=== PATIENT | male | born 1950 | race Caucasian/White ===

== ENCOUNTER → 2020-11-01 09:42 | Outpatient (BNVA) | payer OTHER, SELFPAY | PROVIDERS: PCP Family Medicine; Referring Provider Family Medicine; Visit Provider Urology | DX: R97.20 Elevated prostate specific antigen [PSA] (principal); N40.1 Benign prostatic hyperplasia with lower urinary tract symptoms | CPT/HCPCS: 81003 ==

== ENCOUNTER 2020-12-06 11:23 | Inpatient (IN) | payer OTHER, MEDICARE, SELFPAY ==
[2020-12-06] VITALS (7 sets, daily range): BP systolic 100–125; BP diastolic 62–78; PULSE 66–80; RESP 16–19; TEMP 37.1–37.4; O2SAT 89–95; BMI 27.2
--- NOTE | 2020-12-06 11:45 | XR_ITS ---
WS: [id number] XR chest 1V portable [id number] REASON FOR EXAM: dyspnea FINDINGS: Moderate tortuosity and ectasia of the thoracic aorta without aneurysmal dilatation. Heart at the upp er limits of normal in size. Interstitial infiltrative changes in the right lower lung field and in the left lower and midlung fie lds. Mild changes of degenerative spondylosis in the mid and lower thoracic spine. XR/XR chest 1V portable [id number] IMPRESSION: Interstitial lung opacities likely representing early pneumonitis.
[2020-12-06 12:32] LABS: Basophils % 0.2 %; Hematocrit 43.7 % (42.0-52.0); Hemoglobin 14.4 g/dL (11.7-16.6); Lymphocytes # 0.6 10^3/uL (0.8-4.8); Lymphocytes % 10.6 %; Mean Corpuscular Hemoglobin 28.7 pg (28.0-34.0); Mean Corpuscular Volume 87.1 fl (80-94); Mean Platelet Volume 10.6 fL (7.4-10.4); Monocytes # 0.4 10^3/uL (0.2-0.9); Monocytes % 6.6 %; Neutrophils # 4.89 10^3/uL (1.8-7.7); Neutrophils % 82.1 %; Nucleated Red Blood Cells % 0 %; Platelet Count 205 10^3/cmm (130-400); Red Blood Count 5.02 10^6/uL (4.1-5.3); Red Cell Distribution Width 13.2 % (12.1-15.1)
[2020-12-06 12:52] LABS: D Dimer 1.41 ug/mIFEU (0-0.59)
[2020-12-06 12:56] LABS: Lactic Sepsis W/Reflex 1.5 mmol/L (0.5-2.2)
[2020-12-06 12:59] LABS: Alanine Aminotransferase 32 U/L (0-41); Albumin Level 3.8 g/dL (3.5-5.2); Alkaline Phosphatase 62 IU/L (40-130); Anion Gap 16.6 (5-19); Aspartate Amino Transferase 46 U/L (0-40); Blood Urea Nitrogen 22 mg/dL (8-23); C Reactive Protein 80.6 mg/L (0.0-4.9); Calcium 8.3 mg/dL (8.5-10.5); Carbon Dioxide 29 mmol/L (22-29); Chloride 94 mmol/L (98-107); Globulin 2.6 g/dL (1.3-4.6); Glomerular Filtration Rate 83.9 mL/min (90-130); Glucose 96 mg/dL (65-115); Osmolality Calculated 285 mOsm/kg (285-295); Potassium 3.6 mmol/L (3.5-5.1); Sodium 136 mmol/L (136-145); Total Bilirubin 0.5 mg/dL (0.15-1.2); Total Protein 6.4 g/dL (6.6-8.7)
[2020-12-06 13:06] LABS: Procalcitonin 0.26 ng/mL (0-0.5)
--- NOTE | 2020-12-06 13:20 | CT_ITS ---
WS: [id number] CT CHEST ANGIOGRAPHY WITH REFORMATS HISTORY: COVID /hypoxia TECHNIQUE: Contiguous axial images are obtained through the chest during arterial injection of intrav enous contrast. Images are reconstructed to evaluate the pulmonary arteries. MIP imaging also reviewe d. All CT scans at [facility] use at least one of these dose optimization techniques: automat ed exposure control; mA and/or kV adjustment per patient size (includes targeted exams where dose is matched to clinical indication); or iterative reconstruction. CONTRAST: Omnipaque 350; 95 mL IV. DLP: 527.26 mGy.cm COMPARISON: None available. Limited opacification beyond the segmental branches. Centrally no pulmonary embolism. No filling defe cts in the LEFT atrial appendage. Normal size pulmonary artery. Mildly prominent ascending aorta. Max imum diameter 4.6 cm. Heart is moderately enlarged. No pericardial or pleural effusions. Moderate bilateral groundglass opacifications and more focal areas of consolidations at the lung base s. No pneumothorax. Small hiatal hernia. The bladder is contracted with stones. No pericholecystic fluid. Partially visualized small exophytic cysts or nodules within the upper pole the LEFT kidney. Increase in thoracic kyphosis. CT/CT angio chest PE protcl [id number] IMPRESSION: 1. No central pulmonary embolism. Poor opacification beyond the segmental bran ches. 2. Bilateral, multilobar pneumonia typical for Covid 19. 3. Moderate cardiomegaly. 4. Mild dilatation ascending aorta at 4.6 cm.
--- NOTE | 2020-12-06 13:24 | ED_ITS ---
HPI - COVID General: Chief Complaint: COVID symptoms Stated Complaint: SOB, Cough, Fatique, Fever Time Seen by Provider: 12/06/20 11:40 Triage information: Has fever, cough or shortness of breath . Exposure to COVID + person last 14 days History of Present Illness: HPI Narrative: 70-year-old male who presents to the emergency room with complaint of shortness of breath fatigue and fever. Is worsened over the last several days. He is initially had some loose stools. He was exposed to Covid by his girlfriend who lives with him and was recently hospitalized and has now been discharged. He denies any chest pain. MD complaint: has COVID symptoms Prior covid testing: no COVID 19 common symptoms: positive fever(s), chills, cough, non-productive cough, dyspnea, fatigue, body aches, headache(s), loss of sense of smell and/or taste, throat pain, nasal congestion, nausea and diarrhea; negative vomiting or chest tightness COVID 19 other sytmptoms: negative chest pain Onset (ago): day(s) (5) Severity: mild Pertinent comorbid conditions: diabetes Treatment prior to arrival: none COVID Results: SARS-CoV-2 Antigen (Rapid) Positive (Negative) H 12/06/20 13:14 12/06/20 Nasal/Oral Coronavirus 2019 PCR Pending 12/06/20 13:14 12/06/20 Review of Systems Const: Reports: fever(s), chills, body aches and fatigue ENMT: Reports: throat pain and nasal congestion Card: Denies: chest pain, edema, dyspnea on exertion or orthopnea Resp: Reports: dyspnea and non-productive cough GI: Reports: nausea and diarrhea; Denies: vomiting : Denies: flank pain, dysuria, urinary frequency or urinary urgency Skin/Breast: Denies: rash or pruritus Neuro: Reports: headache(s) PFSH ED PFSH: Medical History Diabetes Elevated PSA Erectile dysfunction Gout Hyperlipidemia Hypertension IBS (irritable bowel syndrome) Insomnia Surgical History H/O colonoscopy with polypectomy H/O excision of mass fatty tumor on back S/P appendectomy Family History Mother , at age 75 Diabetes Father , at age 76 Cancer brain Social History Smoking and tobacco status: former smoker Alcohol intake: never Marital status: / Current occupational status: employed History of recent travel: No Physical Exam Const: COMMON NORMALS: no acute distress GENERAL APPEARANCE: cooperative and comfortable ORIENTATION/CONSCIOUSNESS: Yes awake, Yes oriented to person, Yes oriented to place and Yes oriented to time HENMT: COMMON NORMALS: normocephalic, atraumatic and hearing grossly normal bilaterally HEAD & SCALP: normocephalic and atraumatic Neck/C-Spine: COMMON NORMALS: no JVD Resp: COMMON NORMALS: normal respiratory effort, No retractions, No use of accessory muscles and clear to auscultation bilaterally AUSCULTATION: clear to auscultation bilaterally Cardio: COMMON NORMALS: no JVD, regular rate, regular rhythm and No murmurs present (Cardio) RATE: regular rate RHYTHM: regular rhythm GI: COMMON NORMALS: Soft to palpation and No hepatosplenomegaly present AUSCULTATION: Yes normoactive bowel sounds PALPATION: Yes Soft to palpation, No Tenderness to palpation present (GI), No Guarding due to palpation present (GI) and Yes No hepatosplenomegaly present Extremity: COMMON NORMALS: normal to inspection, capillary refill normal, no clubbing, cyanosis or edema, no calf tenderness and no pedal edema Neuro: SENSORIUM/ORIENTATION: Yes oriented to person, Yes oriented to place and Yes oriented to time Skin: COMMON NORMALS: no rashes or lesions noted GENERAL SKIN EXAM: no rashes or lesions noted Course Vital Signs: Vital signs: Vital Signs Temperature 98.7 F 12/06/20 11:35 Pulse Rate 77 12/06/20 13:43 Respiratory Rate 18 12/06/20 11:35 Blood Pressure 109/74 12/06/20 11:35 Pulse Oximetry 95 12/06/20 13:43 MDM - COVID MDM Narrative: Medical decision making narrative: Labs and imaging reviewed as on the chart. Patient is Covid positive from looking for CTA of his chest I suspect he will worsen he also has a markedly elevated CRP he is requiring 4 L with any activity 2 L when he stays at rest he is hypertensive that can combined with his age I am concerned about progression of his disease. We will go ahead and admit Lab Data: Labs: Lab Results 12/06/20 12/06/20 12/06/20 Range/Units 09:15 09:15 09:15 WBC 6.0 (4.0-10.0) 10^3/ uL RBC 5.02 (4.1-5.3) 10^6/u L Hgb 14.4 (11.7-16.6) g/dL Hct 43.7 (42.0-52.0) % MCV 87.1 (80-94) fl MCH 28.7 (28.0-34.0) pg MCHC 33.0 (30.0-36.0) g/dL RDW 13.2 (12.1-15.1) % Plt Count 205 (130-400) 10^3/c mm MPV 10.6 H (7.4-10.4) fL Neut % (Auto) 82.1 % Lymph % (Auto) 10.6 % Gregory % (Auto) 6.6 % Eos % (Auto) 0.0 % Baso % (Auto) 0.2 % Neut # (Auto) 4.89 (1.8-7.7) 10^3/u L Lymph # (Auto) 0.6 L (0.8-4.8) 10^3/u L Gregory # (Auto) 0.4 (0.2-0.9) 10^3/u L Eos # (Auto) 0.0 (0.0-0.8) 10^3/u L Baso # (Auto) 0.0 (0.0-0.1) 10^3/u L Nucleated RBC % (a uto) 0 % Nucleated RBCs # 0.0 /100WBC D-Dimer 1.41 H (0-0.59) ug/mIFE U Sodium 136 (136-145) mmol/L Potassium 3.6 (3.5-5.1) mmol/L Chloride 94 L (98-107) mmol/L Carbon Dioxide 29 (22-29) mmol/L Anion Gap 16.6 (5-19) BUN 22 (8-23) mg/dL Creatinine 0.9 (0.7-1.2) mg/dL GFR Calculation 83.9 L (90-130) mL/min Glucose 96 (65-115) mg/dL Calculated Osmolal ity 285 (285-295) mOsm/k g Lactic Acid (0.5-2.2) mmol/L Calcium 8.3 L (8.5-10.5) mg/dL Total Bilirubin 0.5 (0.15-1.2) mg/dL AST 46 H (0-40) U/L ALT 32 (0-41) U/L Alkaline Phosphata se 62 (40-130) IU/L C-Reactive Protein 80.6 H (0.0-4.9) mg/L Total Protein 6.4 L (6.6-8.7) g/dL Albumin 3.8 (3.5-5.2) g/dL Globulin 2.6 (1.3-4.6) g/dL Procalcitonin 0.26 (0-0.5) ng/mL SARS-CoV-2 Ag (Rap id) (Negative) 12/06/20 12/06/20 Range/Units 09:15 13:14 WBC (4.0-10.0) 10^3/ uL RBC (4.1-5.3) 10^6/u L Hgb (11.7-16.6) g/dL Hct (42.0-52.0) % MCV (80-94) fl MCH (28.0-34.0) pg MCHC (30.0-36.0) g/dL RDW (12.1-15.1) % Plt Count (130-400) 10^3/c mm MPV (7.4-10.4) fL Neut % (Auto) % Lymph % (Auto) % Gregory % (Auto) % Eos % (Auto) % Baso % (Auto) % Neut # (Auto) (1.8-7.7) 10^3/u L Lymph # (Auto) (0.8-4.8) 10^3/u L Gregory # (Auto) (0.2-0.9) 10^3/u L Eos # (Auto) (0.0-0.8) 10^3/u L Baso # (Auto) (0.0-0.1) 10^3/u L Nucleated RBC % (a uto) % Nucleated RBCs # /100WBC D-Dimer (0-0.59) ug/mIFE U Sodium (136-145) mmol/L Potassium (3.5-5.1) mmol/L Chloride (98-107) mmol/L Carbon Dioxide (22-29) mmol/L Anion Gap (5-19) BUN (8-23) mg/dL Creatinine (0.7-1.2) mg/dL GFR Calculation (90-130) mL/min Glucose (65-115) mg/dL Calculated Osmolal ity (285-295) mOsm/k g Lactic Acid 1.5 (0.5-2.2) mmol/L Calcium (8.5-10.5) mg/dL Total Bilirubin (0.15-1.2) mg/dL AST (0-40) U/L ALT (0-41) U/L Alkaline Phosphata se (40-130) IU/L C-Reactive Protein (0.0-4.9) mg/L Total Protein (6.6-8.7) g/dL Albumin (3.5-5.2) g/dL Globulin (1.3-4.6) g/dL Procalcitonin (0-0.5) ng/mL SARS-CoV-2 Ag (Rap id) Positive H (Negative) COVID Results: SARS-CoV-2 Antigen (Rapid) Positive (Negative) H 12/06/20 13:14 12/06/20 Nasal/Oral Coronavirus 2019 PCR Pending 12/06/20 13:14 12/06/20 Discharge Plan Discharge Patient Disposition: Admitted As Inpatient Admit Provider: Donavan Ambrose Clinical Impression: Pneumonia due to 2019 novel coronavirus Condition: Stable Coding Level of Care Code ED Clinical Safety Manager for [facility] Fwd Exam Comprehensive
[2020-12-06 13:42] LABS: SARS Covid-2 Antigen Positive (Negative)
[2020-12-06] MEDS: iohexol 350 mg/mL 100 mL Btl IV (14:10)
[2020-12-06] MEDS: dexamethasone 10 mg/mL INJ 6 MG IVP (16:02)
[2020-12-06] MEDS: remdesivir 200 MG in sodium chloride 0.9% (100 ml) 100 ML 100 MG IV (16:03)
--- NOTE | 2020-12-06 17:19 | PM.HP ---
Providers/Chief Complaint Admitting Physician: Donavan Ambrose MD Primary Care Provider: Corrie Pardo MD Chief Complaint: SOB, Cough, Fatique, Fever History of Present Illness 70-year-old gentleman presents with dyspnea, fevers, chills, muscle aches, mild diarrhea since Friday, his significant other had recently been hospitalized with COVID-19, he is not vaccinated. In ER found to be positive for COVID-[address] angiogram chest negative for PE. Bilateral multilobar pneumonia typical for COVID-19 is noted. Moderate cardiomegaly. Mild dilation of ascending aorta at 4.6 cm. He is newly requiring oxygen supplementation, on presentation needing 4 L of oxygen. Currently doing a little better needing 2 L supplementation. Review of Systems Const: Reports: fever(s), chills, body aches and malaise Eyes: Denies: change in vision or eye redness ENMT: Denies: throat pain, oral sores or ear or mastoid pain Card: Denies: chest pain, edema, pre-syncope or dyspnea on exertion Resp: Reports: dyspnea and productive cough; Denies: hemoptysis GI: Reports: diarrhea; Denies: abdominal pain, nausea, vomiting, constipation, hematochezia or melena : Denies: flank pain, difficulty urinating, urinary frequency or hematuria Musc: Denies: back pain, joint swelling or joint redness Skin/Breast: Denies: rash, sores or new lesions Neuro: Denies: headache(s), numbness in extremities, weakness in extremities, dizziness, confusion or seizure-like activity Endo: Denies: polyuria or polydipsia Hang/Lymph: Denies: easy bleeding or purpura All/Imm: Denies: urticaria, throat swelling or tongue swelling Medications/Allergies Home Medications Medication Instructions Recorded Confirmed Last Taken Type atenolol 100 mg tablet 50 mg PO DAILY tab 10/17/20 12/06/20 12/06/20 History cetirizine 10 mg tablet 10 mg PO DAILY PRN 10/17/20 12/06/20 12/06/20 History colestipol 1 gram tablet 4 g PO BID tab 10/17/20 12/06/20 12/06/20 History hydrochlorothiazide 50 mg tablet 50 mg PO DAILY 10/17/20 12/06/20 12/06/20 History metformin 500 mg tablet 250 mg PO BID tab 10/17/20 12/06/20 12/06/20 History pravastatin 80 mg tablet 80 mg PO DAILY 10/17/20 12/06/20 12/06/20 History sildenafil 100 mg tablet 100 mg PO DAILY PRN 10/17/20 12/06/20 Unknown History cholecalciferol (vitamin D3) 50 50 mcg PO DAILY 11/01/20 12/06/20 12/06/20 History mcg (2,000 unit) capsule garlic 2,000 mg PO DAILY 11/01/20 12/06/20 12/06/20 History lisinopril 40 mg tablet 20 mg PO DAILY tab 11/01/20 12/06/20 12/06/20 History magnesium 250 mg tablet 500 mg PO DAILY 11/01/20 12/06/20 12/06/20 History multivitamin 1 tab PO DAILY 11/01/20 12/06/20 12/06/20 History omega 9-agk-bxe-fish oil 1,200 mg 1,200 cap PO BID cap 11/01/20 12/06/20 12/06/20 History (144 mg-216 mg) capsule allopurinol 100 mg PO TID 12/06/20 12/06/20 12/06/20 History ascorbic acid (vitamin C) [Vitamin 250 mg PO DAILY 12/06/20 12/06/20 12/06/20 History C] guaifenesin [Mucinex] 1,200 mg PO BID 12/06/20 12/06/20 12/06/20 History melatonin 5 mg PO DAILY PRN 12/06/20 12/06/20 Unknown History potassium citrate 10 meq PO DAILY 12/06/20 12/06/20 12/06/20 History Allergies Allergy/AdvReac Type Severity Reaction Status Date / Time niacin Allergy Unknown Verified 11/01/20 09:46 simvastatin Allergy Unknown Verified 11/01/20 09:46 Sulfa (Sulfonamide Allergy Unknown Verified 11/01/20 09:46 Antibiotics) PFSH Acute PFSH: Medical History Diabetes Elevated PSA Erectile dysfunction Gout Hyperlipidemia Hypertension IBS (irritable bowel syndrome) Insomnia Surgical History H/O colonoscopy with polypectomy H/O excision of mass fatty tumor on back S/P appendectomy Family History Mother , at age 75 Diabetes Father , at age 76 Cancer brain Social History Smoking and tobacco status: former smoker Alcohol intake: never Marital status: / Current occupational status: employed History of recent travel: No Vitals/I&O/Wt Last Vital Signs Temp 98.7 F 12/06/20 11:35 Pulse 77 12/06/20 13:43 Resp 18 12/06/20 11:35 BP 109/74 12/06/20 11:35 Pulse Ox 95 12/06/20 13:43 12/06/20 12/06/20 12/06/20 06:59 14:59 22:59 Intake Total 100 / 100 Balance 100 / 100 Weight last 48 hrs Weight 86.183 kg Physical Exam Const: COMMON NORMALS: no acute distress, patient oriented x3 and alert GENERAL APPEARANCE: cooperative and ill appearing ORIENTATION/CONSCIOUSNESS: Yes awake HENMT: COMMON NORMALS: oropharynx normal Neck/C-Spine: COMMON NORMALS: no JVD Resp: COMMON NORMALS: normal respiratory effort and clear to auscultation bilaterally AUSCULTATION: clear to auscultation bilaterally Cardio: COMMON NORMALS: no JVD, regular rhythm, S1 normal heart sound present, S2 normal heart sound present and No murmurs present (Cardio) RHYTHM: regular rhythm HEART SOUNDS: S1 normal heart sound present and S2 normal heart sound present GI: COMMON NORMALS: Normal to inspection, nondistended, normoactive bowel sounds present, Soft to palpation and non-tender PALPATION: Yes Soft to palpation Extremity: COMMON NORMALS: no joint enlargement and no pedal edema Neuro: COMMON NORMALS: patient oriented x3 and moves all extremities Skin: COMMON NORMALS: no rashes or lesions noted GENERAL SKIN EXAM: no rashes or lesions noted Data : 12/06/20 09:15 12/06/20 09:15 A&P Assessment and plan (1) Pneumonia due to 2019 novel coronavirus: Severe COVID-19 pneumonia with new oxygen requirement, requiring 4 L to maintain saturation in the 90s at presentation. Currently doing a bit better on 2 L. Not vaccinated. Started on treatment with remdesivir, Decadron. Lovenox prophylaxis. Continue oxygen support. CTA negative for PE. Currently does not have evidence of superimposed secondary bacterial infection. Status: Acute Additional A&P Information Diabetes: SSI HTN HLD Reports apart from the above illness, otherwise has been feeling healthy Attestations Medical Necessity Statement*: Admission of over 2 midnights is anticipated in this gentleman with severe COVID-19 and underlying comorbidities. Coding Level of Care Code Acute Dental Amalgam Processor for [facility] Fwd Diagnoses Pneumonia due to 2019 novel coronavirus U07.1; J12.82
[2020-12-06 17:50] LABS: Glucose Point of Care 116 mg/dL (70-110)
[2020-12-06] MEDS: enoxaparin 40 mg/0.4 mL Syringe SUBCUT (18:20)
[2020-12-06] MEDS: guaiFENesin 600 mg Tablet 1200 MG PO (18:20)
[2020-12-06 20:54] LABS: Glucose Point of Care 146 mg/dL (70-110)
[2020-12-07] VITALS (7 sets, daily range): BP systolic 101–131; BP diastolic 63–82; PULSE 67–98; RESP 17–19; TEMP 36.7–37; O2SAT 87–94
[2020-12-07 05:46] LABS: Hematocrit 42.5 % (42.0-52.0); Hemoglobin 14.1 g/dL (11.7-16.6); Lymphocytes # 0.7 10^3/uL (0.8-4.8); Lymphocytes % 14.1 %; Mean Corpuscular HGB Conc 33.2 g/dL (30.0-36.0); Mean Corpuscular Hemoglobin 28.9 pg (28.0-34.0); Mean Corpuscular Volume 87.1 fl (80-94); Mean Platelet Volume 10.6 fL (7.4-10.4); Monocytes # 0.4 10^3/uL (0.2-0.9); Monocytes % 7.2 %; Neutrophils # 4.04 10^3/uL (1.8-7.7); Neutrophils % 78.1 %; Nucleated Red Blood Cells % 0 %; Platelet Count 217 10^3/cmm (130-400); Red Blood Count 4.88 10^6/uL (4.1-5.3); White Blood Count 5.2 10^3/uL (4.0-10.0)
[2020-12-07 06:05] LABS: Alanine Aminotransferase 31 U/L (0-41); Albumin Level 3.3 g/dL (3.5-5.2); Alkaline Phosphatase 60 IU/L (40-130); Anion Gap 16.4 (5-19); Aspartate Amino Transferase 38 U/L (0-40); Blood Urea Nitrogen 20 mg/dL (8-23); C Reactive Protein 87.9 mg/L (0.0-4.9); Calcium 8.2 mg/dL (8.5-10.5); Carbon Dioxide 28 mmol/L (22-29); Chloride 96 mmol/L (98-107); Globulin 3.2 g/dL (1.3-4.6); Glucose 126 mg/dL (65-115); Osmolality Calculated 288 mOsm/kg (285-295); Potassium 3.4 mmol/L (3.5-5.1); Sodium 137 mmol/L (136-145); Total Bilirubin 0.4 mg/dL (0.15-1.2); Total Protein 6.5 g/dL (6.6-8.7)
--- NOTE | 2020-12-07 06:10 | PC.NURSE ---
Patient AAOx4, VSS, resting in bed, patient requesting home medication be put on MAR.
[2020-12-07 06:52] LABS: Glucose Point of Care 137 mg/dL (70-110)
[2020-12-07] MEDS: guaiFENesin 600 mg Tablet 1200 MG PO ×2 (08:55→17:36)
--- NOTE | 2020-12-07 11:59 | PM.PN ---
Subjective Subjective: Interval history: Overall he is doing about the same. He is still requiring oxygen,. She had desaturated after placing his nasal cannula upside down with saturation decreasing to 88%. He had gotten up to the commode and back to the bed. Denies any presyncopal symptoms. No chest pain. He is having mild diarrhea. Denies nausea or vomiting. Vitals/I&O/Wt Last Vital Signs Temp 98.2 F 12/07/20 08:00 Pulse 98 12/07/20 11:09 Resp 17 12/07/20 08:00 BP 112/71 12/07/20 08:00 Pulse Ox 93 12/07/20 11:09 12/06/20 12/07/20 12/07/20 22:59 06:59 14:59 Intake Total 340 / 340 200 / 540 360 / 360 Output Total 250 / 250 700 / 700 Balance 340 / 340 -50 / 290 -340 / -340 Weight last 48 hrs Weight 87.997 kg Weight 86.183 kg Weight 86.183 kg Physical Exam Const: COMMON NORMALS: no acute distress, patient oriented x3 and alert GENERAL APPEARANCE: cooperative ORIENTATION/CONSCIOUSNESS: Yes awake HENMT: COMMON NORMALS: oropharynx normal Neck/C-Spine: COMMON NORMALS: no JVD Resp: COMMON NORMALS: normal respiratory effort and clear to auscultation bilaterally AUSCULTATION: clear to auscultation bilaterally Cardio: COMMON NORMALS: no JVD, regular rhythm, S1 normal heart sound present, S2 normal heart sound present and No murmurs present (Cardio) RHYTHM: regular rhythm HEART SOUNDS: S1 normal heart sound present and S2 normal heart sound present GI: COMMON NORMALS: Normal to inspection, nondistended, normoactive bowel sounds present, Soft to palpation and non-tender PALPATION: Yes Soft to palpation Extremity: COMMON NORMALS: no joint enlargement and no pedal edema Neuro: COMMON NORMALS: patient oriented x3 and moves all extremities SENSORIUM/ORIENTATION: Yes alert Skin: COMMON NORMALS: no rashes or lesions noted GENERAL SKIN EXAM: no rashes or lesions noted Data : 12/07/20 04:56 12/07/20 04:56 A&P Assessment and plan (1) Pneumonia due to 2019 novel coronavirus: Continue remdesivir, Decadron. Continue oxygen support. Desaturated today to 88% when accidentally placed his nasal cannula upside down. Continue to treat and monitor in the hospital for severe COVID-19 pneumonia. Feels some dryness of airway passages. Humidifier added to oxygen. Continue Lovenox prophylaxis. Continue oxygen support. CTA negative for PE. Currently does not have evidence of superimposed secondary bacterial infection. Status: Acute Additional A&P Information Diabetes: SSI HTN HLD Reports apart from the above illness, otherwise has been feeling healthy Attestations Medical Necessity Statement*: Continue admission for assessment management of severe COVID-19, new hypoxia. Coding Level of Care Code Acute Skilled Nursing Professional for [facility] Fwd Diagnoses Pneumonia due to 2019 novel coronavirus U07.1; J12.82
[2020-12-07 12:11] LABS: Glucose Point of Care 131 mg/dL (70-110)
[2020-12-07 13:34] LABS: Coronavirus Test Green County Detected
[2020-12-07] MEDS: enoxaparin 40 mg/0.4 mL Syringe SUBCUT (17:36)
[2020-12-07] MEDS: remdesivir 100 MG in sodium chloride 0.9% (100 ml) 100 ML IV (17:36)
[2020-12-07 17:50] LABS: Glucose Point of Care 125 mg/dL (70-110)
[2020-12-07] MEDS: guaiFENesin-dextromethorphan UDC 10 mL PO (21:19)
[2020-12-07 21:28] LABS: Glucose Point of Care 134 mg/dL (70-110)
[2020-12-08] VITALS: BP 110/69; PULSE 73; RESP 16; TEMP 37.2; O2SAT 90
[2020-12-08 04:00] VITALS: BP 121/74; PULSE 72; RESP 18; TEMP 37.3; O2SAT 96
[2020-12-08 05:19] LABS: Basophils % 0.1 %; Hematocrit 42.7 % (42.0-52.0); Lymphocytes % 12.8 %; Mean Corpuscular HGB Conc 32.8 g/dL (30.0-36.0); Mean Corpuscular Hemoglobin 28.3 pg (28.0-34.0); Mean Corpuscular Volume 86.4 fl (80-94); Mean Platelet Volume 10.7 fL (7.4-10.4); Monocytes # 0.6 10^3/uL (0.2-0.9); Monocytes % 7.8 %; Neutrophils # 6.31 10^3/uL (1.8-7.7); Neutrophils % 78.9 %; Nucleated Red Blood Cells % 0 %; Platelet Count 266 10^3/cmm (130-400); Red Blood Count 4.94 10^6/uL (4.1-5.3); Red Cell Distribution Width 12.8 % (12.1-15.1)
[2020-12-08 05:45] LABS: Alanine Aminotransferase 32 U/L (0-41); Alkaline Phosphatase 52 IU/L (40-130); Anion Gap 15.5 (5-19); Aspartate Amino Transferase 47 U/L (0-40); Blood Urea Nitrogen 21 mg/dL (8-23); Calcium 8.4 mg/dL (8.5-10.5); Carbon Dioxide 29 mmol/L (22-29); Chloride 97 mmol/L (98-107); Globulin 3.3 g/dL (1.3-4.6); Glomerular Filtration Rate 165.4 mL/min (90-130); Glucose 106 mg/dL (65-115); Osmolality Calculated 289 mOsm/kg (285-295); Potassium 3.5 mmol/L (3.5-5.1); Sodium 138 mmol/L (136-145); Total Bilirubin 0.3 mg/dL (0.15-1.2); Total Protein 6.3 g/dL (6.6-8.7)
--- NOTE | 2020-12-08 06:33 | PC.NURSE ---
Patient AAOx4, VSS, slight increase in oxygen demands as patient ambulates. No needs at this time. OOBT bathroom, room clutter free and call light in reach. Report and hand off to oncoming nurse at shift change.
[2020-12-08 06:58] LABS: Glucose Point of Care 102 mg/dL (70-110)
[2020-12-08 08:00] VITALS: BP 108/67; PULSE 78; RESP 18; TEMP 36.9; O2SAT 93
[2020-12-08 08:53] LABS: C Reactive Protein 47.2 mg/L (0.0-4.9)
[2020-12-08] MEDS: guaiFENesin 600 mg Tablet 1200 MG PO ×2 (09:04→17:40)
[2020-12-08 09:31] LABS: D Dimer 1.01 ug/mIFEU (0-0.59)
[2020-12-08 11:02] VITALS: BP 124/80; PULSE 91; RESP 18; TEMP 36.9; O2SAT 93
[2020-12-08 11:02] LABS: Glucose Point of Care 149 mg/dL (70-110)
[2020-12-08] MEDS: guaiFENesin-dextromethorphan UDC 10 mL PO (11:38)
--- NOTE | 2020-12-08 14:14 | P.PN_ITS ---
Subjective Subjective: Interval history: He is still feeling unwell, overall perhaps a touch better. Still intermittent cough, especially with deeper breath. Vitals/I&O/Wt Last Vital Signs Temp 98.5 F 12/08/20 11:02 Pulse 91 12/08/20 11:02 Resp 18 12/08/20 11:02 BP 124/80 12/08/20 11:02 Pulse Ox 93 12/08/20 11:02 12/07/20 12/08/20 12/08/20 22:59 06:59 14:59 Intake Total 340 / 1060 200 / 1260 120 / 120 Output Total 450 / 1150 225 / 225 Balance -110 / -90 200 / 110 -105 / -105 Weight last 48 hrs Weight 87.952 kg Weight 87.997 kg Weight 86.183 kg Physical Exam Const: COMMON NORMALS: no acute distress, patient oriented x3 and alert GENERAL APPEARANCE: cooperative and ill appearing ORIENTATION/CONSCIOUSNESS: Yes awake HENMT: COMMON NORMALS: oropharynx normal Neck/C-Spine: COMMON NORMALS: no JVD Resp: COMMON NORMALS: normal respiratory effort and clear to auscultation bilaterally AUSCULTATION: clear to auscultation bilaterally Cardio: COMMON NORMALS: no JVD, regular rhythm, S1 normal heart sound present, S2 normal heart sound present and No murmurs present (Cardio) RHYTHM: regular rhythm HEART SOUNDS: S1 normal heart sound present and S2 normal heart sound present GI: COMMON NORMALS: Normal to inspection, nondistended, normoactive bowel sounds present, Soft to palpation and non-tender PALPATION: Yes Soft to palpation Extremity: COMMON NORMALS: no joint enlargement and no pedal edema Neuro: COMMON NORMALS: patient oriented x3 and moves all extremities SENSORIUM/ORIENTATION: Yes alert Skin: COMMON NORMALS: no rashes or lesions noted GENERAL SKIN EXAM: no rashes or lesions noted Data : 12/08/20 04:04 12/08/20 04:04 A&P Assessment and plan (1) Pneumonia due to 2019 novel coronavirus: Some worsening of hypoxia, requiring 4 L of oxygen. Given so far lack of improvement hypoxia, and some gradual worsening, continue remdesivir, Decadron. Continue oxygen support. Continue to treat and monitor in the hospital for severe COVID-19 pneumonia. Continue Lovenox prophylaxis. Continue oxygen support. CTA negative for PE. Currently does not have evidence of superimposed secondary bacterial infection. Status: Acute Additional A&P Information Diabetes: SSI HTN HLD Reports apart from the above illness, otherwise has been feeling healthy Attestations Medical Necessity Statement*: Continue admission for assessment management of severe COVID-19. Coding Level of Care Code Acute Livestock Inspector for [facility] Fwd Diagnoses Pneumonia due to 2019 novel coronavirus U07.1; J12.82
[2020-12-08 15:52] VITALS: BP 118/67; PULSE 93; RESP 18; TEMP 38.7; O2SAT 90
[2020-12-08] MEDS: acetaminophen 325 mg Tablet 650 MG PO (16:39)
[2020-12-08 16:57] LABS: Glucose Point of Care 118 mg/dL (70-110)
[2020-12-08] MEDS: remdesivir 100 MG in sodium chloride 0.9% (100 ml) 100 ML IV (17:40)
[2020-12-08] MEDS: enoxaparin 40 mg/0.4 mL Syringe SUBCUT (17:40)
[2020-12-08 20:00] VITALS: BP 119/75; PULSE 83; RESP 17; TEMP 36.8; O2SAT 90
[2020-12-08 20:54] LABS: Glucose Point of Care 126 mg/dL (70-110)
[2020-12-09] VITALS (10 sets, daily range): BP systolic 115–149; BP diastolic 72–96; PULSE 65–112; RESP 15–20; TEMP 36.7–38.3; O2SAT 89–96
[2020-12-09 05:42] LABS: Basophils % 0.1 %; Hematocrit 43.2 % (42.0-52.0); Lymphocytes # 0.9 10^3/uL (0.8-4.8); Lymphocytes % 12.4 %; Mean Corpuscular HGB Conc 32.4 g/dL (30.0-36.0); Mean Corpuscular Hemoglobin 28.9 pg (28.0-34.0); Mean Corpuscular Volume 89.1 fl (80-94); Mean Platelet Volume 10.7 fL (7.4-10.4); Monocytes # 0.5 10^3/uL (0.2-0.9); Monocytes % 6.9 %; Neutrophils # 5.79 10^3/uL (1.8-7.7); Nucleated Red Blood Cells % 0 %; Platelet Count 259 10^3/cmm (130-400); Red Blood Count 4.85 10^6/uL (4.1-5.3); Red Cell Distribution Width 12.9 % (12.1-15.1); White Blood Count 7.2 10^3/uL (4.0-10.0)
[2020-12-09 06:00] LABS: D Dimer 1.72 ug/mIFEU (0-0.59)
[2020-12-09 06:07] LABS: Alanine Aminotransferase 171 U/L (0-41); Albumin Level 2.8 g/dL (3.5-5.2); Alkaline Phosphatase 140 IU/L (40-130); Aspartate Amino Transferase 146 U/L (0-40); Blood Urea Nitrogen 14 mg/dL (8-23); C Reactive Protein 67.1 mg/L (0.0-4.9); Calcium 8.5 mg/dL (8.5-10.5); Carbon Dioxide 28 mmol/L (22-29); Chloride 97 mmol/L (98-107); Globulin 3.4 g/dL (1.3-4.6); Glomerular Filtration Rate 165.4 mL/min (90-130); Glucose 95 mg/dL (65-115); Osmolality Calculated 280 mOsm/kg (285-295); Sodium 135 mmol/L (136-145); Total Bilirubin 0.5 mg/dL (0.15-1.2); Total Protein 6.2 g/dL (6.6-8.7)
[2020-12-09 06:12] LABS: Anion Gap 13.6 (5-19); Potassium 3.6 mmol/L (3.5-5.1)
[2020-12-09 06:34] LABS: Glucose Point of Care 111 mg/dL (70-110)
[2020-12-09 08:11] LABS: Slide Review Slide Review Perform
--- NOTE | 2020-12-09 08:37 | PC.SOCIAL ---
IMM update IMM updated with patient. Verbalized an understanding. Initialled, dated, timed and placed in chart.
[2020-12-09] MEDS: guaiFENesin 600 mg Tablet 1200 MG PO ×2 (09:10→17:04)
[2020-12-09 11:23] LABS: Glucose Point of Care 90 mg/dL (70-110)
--- NOTE | 2020-12-09 11:25 | P.PN_ITS ---
Subjective Subjective: Interval history: He is feeling hungry. Has not had breakfast. Something happened to his breakfast tray. No nausea vomiting. No diarrhea. No abdominal pain. Otherwise states he is having some irritation in his airway midway down his chest. Coughing. Does say antitussives help but states was not receiving them often enough. Discussed with him that they are ordered as needed he is to request. We will request Joansalon pearls to be scheduled. Vitals/I&O/Wt Last Vital Signs Temp 98.1 F 12/09/20 08:00 Pulse 112 H 12/09/20 10:31 Resp 17 12/09/20 08:00 BP 115/75 12/09/20 08:00 Pulse Ox 92 12/09/20 10:31 12/08/20 12/09/20 12/09/20 22:59 06:59 14:59 Intake Total 580 / 700 620 / 1320 Output Total 450 / 675 1000 / 1675 Balance 130 / 25 -380 / -355 Weight last 48 hrs Weight 87.952 kg Physical Exam Const: COMMON NORMALS: no acute distress, patient oriented x3 and alert GENERAL APPEARANCE: cooperative and ill appearing ORIENTATION/CONSCIOUSNESS: Yes awake OTHER: [place] HENMT: COMMON NORMALS: oropharynx normal Neck/C-Spine: COMMON NORMALS: no JVD Resp: COMMON NORMALS: normal respiratory effort and clear to auscultation bilaterally AUSCULTATION: clear to auscultation bilaterally Cardio: COMMON NORMALS: no JVD, regular rhythm, S1 normal heart sound present, S2 normal heart sound present and No murmurs present (Cardio) RHYTHM: regular rhythm HEART SOUNDS: S1 normal heart sound present and S2 normal heart sound present GI: COMMON NORMALS: Normal to inspection, nondistended, normoactive bowel sounds present, Soft to palpation and non-tender PALPATION: Yes Soft to palpation Extremity: COMMON NORMALS: no joint enlargement and no pedal edema Neuro: COMMON NORMALS: patient oriented x3 and moves all extremities SENSORIUM/ORIENTATION: Yes alert Skin: COMMON NORMALS: no rashes or lesions noted GENERAL SKIN EXAM: no rashes or lesions noted Data : 12/09/20 04:53 12/09/20 04:53 A&P Assessment and plan (1) Pneumonia due to 2019 novel coronavirus: Worsening hypoxia, today requiring 5 L of oxygen. He is afebrile, no leukocytosis. Some minimal phlegm production. Sputum culture not collected. Requested for specimen cup to bedside. He is coughing. States antitussives hel p, but was not receiving them often enough. We will schedule Tesbryanon Perlbeba. Discussed with him he has Robitussin ordered as needed and needs to ask for it. Discussed with him given some gradual worsening to continue care in the hospital, continue remdesivir, Decadron. He agrees. Continue oxygen support, wean if tolerating. Continue Lovenox prophylaxis. Continue oxygen support. CTA negative for PE. Currently does not have evidence of superimposed secondary bacterial infection. Continue to treat and monitor in the hospital for severe COVID-19 pneumonia. Status: Acute Additional A&P Information Transaminitis: Secondary to severe COVID-19. Monitor. Diabetes: SSI HTN HLD Reports apart from the above illness, otherwise has been feeling healthy Attestations Medical Necessity Statement*: Continue admission for severe COVID-19 with worsening hypoxia. Coding Level of Care Code Acute Mill Tender Warm Up for Juliet Adames Diagnoses Pneumonia due to 2019 novel coronavirus U07.1; J12.82
[2020-12-09] MEDS: guaiFENesin-dextromethorphan UDC 10 mL PO (11:54)
[2020-12-09] MEDS: acetaminophen 325 mg Tablet 650 MG PO (12:53)
[2020-12-09] MEDS: benzonatate 100 mg Capsule 200 MG PO ×2 (14:53→20:24)
[2020-12-09] MEDS: enoxaparin 40 mg/0.4 mL Syringe SUBCUT (17:04)
[2020-12-09] MEDS: remdesivir 100 MG in sodium chloride 0.9% (100 ml) 100 ML IV (17:04)
[2020-12-09 17:14] LABS: Glucose Point of Care 113 mg/dL (70-110)
[2020-12-09 20:36] LABS: Glucose Point of Care 115 mg/dL (70-110)
[2020-12-10 04:00] VITALS: BP 117/72; PULSE 81; RESP 18; TEMP 37.2; O2SAT 90
[2020-12-10 05:52] LABS: Basophils % 0.1 %; Eosinophils % 0.1 %; Hematocrit 41.5 % (42.0-52.0); Hemoglobin 13.8 g/dL (11.7-16.6); Lymphocytes # 0.9 10^3/uL (0.8-4.8); Lymphocytes % 9.8 %; Mean Corpuscular HGB Conc 33.3 g/dL (30.0-36.0); Mean Corpuscular Hemoglobin 28.9 pg (28.0-34.0); Mean Corpuscular Volume 86.8 fl (80-94); Mean Platelet Volume 9.9 fL (7.4-10.4); Monocytes # 0.7 10^3/uL (0.2-0.9); Monocytes % 7.4 %; Neutrophils # 7.54 10^3/uL (1.8-7.7); Neutrophils % 81.6 %; Nucleated Red Blood Cells % 0 %; Platelet Count 346 10^3/cmm (130-400); Red Blood Count 4.78 10^6/uL (4.1-5.3); Red Cell Distribution Width 12.8 % (12.1-15.1); White Blood Count 9.2 10^3/uL (4.0-10.0)
[2020-12-10 06:27] LABS: Alanine Aminotransferase 135 U/L (0-41); Albumin Level 2.7 g/dL (3.5-5.2); Alkaline Phosphatase 131 IU/L (40-130); Anion Gap 12.4 (5-19); Aspartate Amino Transferase 79 U/L (0-40); Blood Urea Nitrogen 11 mg/dL (8-23); Calcium 8.3 mg/dL (8.5-10.5); Carbon Dioxide 28 mmol/L (22-29); Chloride 98 mmol/L (98-107); Globulin 3.3 g/dL (1.3-4.6); Glomerular Filtration Rate 165.4 mL/min (90-130); Glucose 102 mg/dL (65-115); Osmolality Calculated 280 mOsm/kg (285-295); Potassium 3.4 mmol/L (3.5-5.1); Sodium 135 mmol/L (136-145); Total Bilirubin 0.6 mg/dL (0.15-1.2)
[2020-12-10 07:10] LABS: Glucose Point of Care 106 mg/dL (70-110)
[2020-12-10 07:26] VITALS: BP 122/76; PULSE 95; RESP 20; TEMP 36.5; O2SAT 88
[2020-12-10] MEDS: guaiFENesin 600 mg Tablet 1200 MG PO ×2 (08:33→16:57)
[2020-12-10] MEDS: benzonatate 100 mg Capsule 200 MG PO ×3 (08:33→21:21)
[2020-12-10] MEDS: acetaminophen 325 mg Tablet 650 MG PO (08:34)
[2020-12-10] MEDS: guaiFENesin-dextromethorphan UDC 10 mL PO (09:58)
[2020-12-10 11:08] LABS: Glucose Point of Care 140 mg/dL (70-110)
[2020-12-10 11:17] VITALS: BP 102/67; PULSE 97; RESP 20; TEMP 36.4; O2SAT 87
--- NOTE | 2020-12-10 13:32 | P.PN_ITS ---
Subjective Subjective: Interval history: Overall is doing about the same, not much better. On 5 L nasal cannula. Still intermittent cough. Discussed with him regarding making Tessalon Perles scheduled, as well as having Robitussin as needed. He states understands to ask for Robitussin if having bouts of cough. No nausea vomiting or diarrhea. Vitals/I&O/Wt Last Vital Signs Temp 97.5 F L 12/10/20 11:17 Pulse 97 12/10/20 11:17 Resp 20 H 12/10/20 11:17 BP 102/67 12/10/20 11:17 Pulse Ox 87 L 12/10/20 11:17 12/09/20 12/10/20 12/10/20 22:59 06:59 14:59 Intake Total 100 / 460 400 / 400 Output Total 250 / 250 350 / 600 150 / 150 Balance -150 / 210 -350 / -140 250 / 250 Weight last 48 hrs Weight 86.409 kg Physical Exam Const: COMMON NORMALS: no acute distress, patient oriented x3 and alert GENERAL APPEARANCE: cooperative and ill appearing ORIENTATION/CONSCIOUSNESS: Yes awake OTHER: [place] HENMT: COMMON NORMALS: oropharynx normal Neck/C-Spine: COMMON NORMALS: no JVD Resp: COMMON NORMALS: normal respiratory effort and clear to auscultation bilaterally AUSCULTATION: clear to auscultation bilaterally Cardio: COMMON NORMALS: no JVD, regular rhythm, S1 normal heart sound present, S2 normal heart sound present and No murmurs present (Cardio) RHYTHM: regular rhythm HEART SOUNDS: S1 normal heart sound present and S2 normal heart sound present GI: COMMON NORMALS: Normal to inspection, nondistended, normoactive bowel sounds present, Soft to palpation and non-tender PALPATION: Yes Soft to palpation Extremity: COMMON NORMALS: no joint enlargement and no pedal edema Neuro: COMMON NORMALS: patient oriented x3 and moves all extremities SENSORIUM/ORIENTATION: Yes alert Skin: COMMON NORMALS: no rashes or lesions noted GENERAL SKIN EXAM: no rashes or lesions noted Data : 12/10/20 05:25 12/10/20 05:25 Micro: Microbiology 12/09/20 16:00 Gram Stain - Final Sputum - Expectorated Sputum Sputum Culture - Preliminary A&P Assessment and plan (1) Pneumonia due to 2019 novel coronavirus: Overall oxygenation has been gradually worsening. Continues to require 5 L of oxygen by nasal cannula. Not doing much better. Discussed with him contin ued treatment with remdesivir extended course, continue Decadron. Will repeat chest x-ray given he continues to have bouts of cough with some phlegm production.Discussed with him we otherwise do not have suggestion of sepsis or superimposed bacterial infection at the moment. Continue to treat cough. Heriberto Berger made scheduled. Robitussin as needed. Continue oxygen support, wean if tolerating. Continue Lovenox prophylaxis. CTA negative for PE. Currently does not have evidence of superimposed secondary bacterial infection. Continue to treat and monitor in the hospital for severe COVID-19 pneumonia. Status: Acute Additional A&P Information Transaminitis: Secondary to severe COVID-19. Improving. Monitor. Mild hypokalemia: Replace Diabetes: SSI HTN HLD Reports apart from the above illness, otherwise has been feeling healthy Attestations Medical Necessity Statement*: Continue admission for assessment management of hypoxia with severe COVID-19. Coding Level of Care Code Acute Stage Director for Juliet Adames Diagnoses Pneumonia due to 2019 novel coronavirus U07.1; J12.82
[2020-12-10 15:08] VITALS: BP 153/88; PULSE 82; RESP 16; TEMP 36.8; O2SAT 94
[2020-12-10] MEDS: potassium chloride ER 20 mEq Tablet PO (15:13)
[2020-12-10 16:44] LABS: Glucose Point of Care 117 mg/dL (70-110)
[2020-12-10] MEDS: remdesivir 100 MG in sodium chloride 0.9% (100 ml) 100 ML IV (16:57)
[2020-12-10] MEDS: enoxaparin 40 mg/0.4 mL Syringe SUBCUT (16:57)
[2020-12-10 20:00] VITALS: BP 135/75; PULSE 82; RESP 20; TEMP 37.8; O2SAT 94
[2020-12-10 20:39] LABS: Glucose Point of Care 132 mg/dL (70-110)
[2020-12-10 23:00] VITALS: O2SAT 93
[2020-12-11] VITALS (79 sets, daily range): BP systolic 114–130; BP diastolic 69–83; PULSE 70–111; RESP 14–33; TEMP 36.4–37.2; O2SAT 82–95
[2020-12-11 05:48] LABS: Basophils % 0.1 %; Eosinophils % 0.2 %; Hemoglobin 13.3 g/dL (11.7-16.6); Lymphocytes # 0.9 10^3/uL (0.8-4.8); Mean Corpuscular HGB Conc 33.3 g/dL (30.0-36.0); Mean Corpuscular Volume 87.1 fl (80-94); Mean Platelet Volume 10.1 fL (7.4-10.4); Monocytes # 0.9 10^3/uL (0.2-0.9); Monocytes % 8.2 %; Neutrophils # 8.44 10^3/uL (1.8-7.7); Neutrophils % 81.2 %; Nucleated Red Blood Cells % 0 %; Platelet Count 428 10^3/cmm (130-400); Red Blood Count 4.59 10^6/uL (4.1-5.3); Red Cell Distribution Width 12.9 % (12.1-15.1); White Blood Count 10.4 10^3/uL (4.0-10.0)
--- NOTE | 2020-12-11 06:00 | XRR_ITS ---
PROCEDURE INFORMATION: Exam: XR Chest Exam date and time: 12/11/2020 6:00 AM Age: 70 years old Clinical indication: Shortness of breath; Patient HX: Follow up covid; Additional info: Hypoxia TECHNIQUE: Imaging protocol: XR of the chest. Views: 1 view. Total images: 1 COMPARISON: CR XR chest 1V portable [id number] 12/06/2020 12:15 PM FINDINGS: Lungs: Bilateral extensive patchy airspace densities, favoring pneumonia, possibly atypical pneumonia. Pleural spaces: Unremarkable. No pleural effusion. No pneumothorax. Heart/Mediastinum: Heart size is stable when compared to the prior exam. Bones/joints: Osseous structures are unchanged from the prior exam. XR/XR chest 1V portable [id number] IMPRESSION: Bilateral extensive patchy airspace densities, favoring pneumonia, possibly atypical pneumonia.
[2020-12-11 06:02] LABS: D Dimer 0.95 ug/mIFEU (0-0.59)
[2020-12-11 06:15] LABS: Alanine Aminotransferase 100 U/L (0-41); Albumin Level 2.8 g/dL (3.5-5.2); Alkaline Phosphatase 116 IU/L (40-130); Anion Gap 12.6 (5-19); Aspartate Amino Transferase 51 U/L (0-40); Blood Urea Nitrogen 12 mg/dL (8-23); C Reactive Protein 144.2 mg/L (0.0-4.9); Calcium 8.4 mg/dL (8.5-10.5); Carbon Dioxide 28 mmol/L (22-29); Chloride 100 mmol/L (98-107); Globulin 3.3 g/dL (1.3-4.6); Glomerular Filtration Rate 165.4 mL/min (90-130); Glucose 109 mg/dL (65-115); Osmolality Calculated 284 mOsm/kg (285-295); Potassium 3.6 mmol/L (3.5-5.1); Sodium 137 mmol/L (136-145); Total Bilirubin 0.6 mg/dL (0.15-1.2); Total Protein 6.1 g/dL (6.6-8.7)
[2020-12-11 06:15] LABS: Glucose Point of Care 121 mg/dL (70-110)
[2020-12-11] MEDS: guaiFENesin 600 mg Tablet 1200 MG PO (08:39)
[2020-12-11] MEDS: benzonatate 100 mg Capsule 200 MG PO ×3 (08:39→21:15)
[2020-12-11] MEDS: guaiFENesin-dextromethorphan UDC 10 mL PO ×2 (08:39→17:27)
--- NOTE | 2020-12-11 09:33 | USCV_ITS ---
Jorje Armendariz Age: 70 Gender: M : 1950 Exam Date: 12/11/2020 11:48 Ordering Phys: Mau Powell MD Technologist: Sahra Valdes Exam Location: [facility] – [place] Indication: COVID, SOB BP: 129 / 78 HR: 89 Rhythm: Sinus Technical Quality: Adequate MEASUREMENTS (Male / Female) Normal Values 2D ECHO LV Diastolic Diameter PLAX 5.5 cm 4.2 - 5.9 / 3.9 - 5.3 cm LV Systolic Diameter PLAX 3.9 cm LV Chamber Size 4.4 cm IVS Diastolic Thickness 1.2 cm 0.6 - 1.0 / 0.6 - 0.9 cm IVS Systolic Thickness 2.2 cm LVPW Diastolic Thickness 1.5 cm 0.6 - 1.0 / 0.6 - 0.9 cm LVPW Systolic Thickness 1.8 cm RV Chamber Size 2.5 cm LVOT Diameter 2.0 cm LV Ejection Fraction 2D Teich 56.0 % LV Ejection Fraction MOD 2C 61.5 % LV Ejection Fraction 2C AL 63.0 % LA Diameter 3.8 cm LA Width 1.9 cm LA Height 5.1 cm RA Width 3.2 cm RA Height 4.4 cm Aorta at Sinotubular Diameter 2.7 cm DOPPLER AV Peak Velocity 172.0 cm/s LVOT Peak Velocity 120.0 cm/s AV Area Cont Eq vti 2.7 cm squared AV Area Cont Eq pk 2.2 cm squared MV Area PHT 4.8 cm squared Mitral E to A Ratio 0.7 MV E' Velocity 33.5 cm/s Mitral E to MV E' Ratio 7.3 Mitral E to LV E' Lateral Ratio 9.1 Mitral E to LV E' Septal Ratio 6.0 TR Peak Velocity 231.6 cm/s TR Peak Gradient 21.4 mmHg TR Mean Velocity 172.2 cm/s TR Mean Gradient 12.9 mmHg TR Velocity Time Integral 48.8 cm TV Peak E Velocity 1.0 cm/s Right Atrial Pressure 8.0 mmHg Pulmonary Artery Systolic Pressu 29.4 mmHg PV Peak Velocity 111.0 cm/s RV Acceleration Time 0.1 s RV Ejection Time 0.2 s RV AcT/ET 0.2 FINDINGS Left Ventricle Normal left ventricular cavity size. Normal left ventricular systolic function. No regional wall motion abnormalities. Left ventricular ejection fraction is estimated at 60 %. Grade I/IV diastolic dysfunction (abnormal relaxation filling pattern), normal to mildly elevated filling pressures. Right Ventricle The right ventricle is normal in size and function. Right Atrium The right atrium is normal in size. Left Atrium The left atrium is normal in size. Mitral Valve Structurally normal mitral valve without significant stenosis or prolapse. There is no mitral regurgitation. Aortic Valve Moderate aortic valve calcification. No aortic valve stenosis. Trace aortic valve regurgitation. Tricuspid Valve Trace tricuspid valve regurgitation. Pulmonic Valve Structurally normal pulmonic valve without significant stenosis. There is no pulmonic regurgitation. Pericardium Normal pericardium without effusion. Aorta Normal ascending aorta dimension. CONCLUSIONS 1-Normal left ventricular cavity size. Normal left ventricular systolic function. No regional wall motion abnormalities. Left ventricular ejection fraction is estimated at 60 %. Grade I/IV diastolic dysfunction (abnormal relaxation filling pattern), normal to mildly elevated filling pressures. 2-There is no pericardial effusion. 3-No significant valve abnormalities. 4-Pulmonary artery systolic pressure is within normal limits. 5-Right atrial pressure is around 5 mm of mercury. Dina Sanz MD (Electronically Signed) Final Date: 11 December 2020 18:58 S
[2020-12-11 10:07] LABS: NT Pro B Type Natriuretic Pept 146 pg/mL (0-125); Procalcitonin 0.17 ng/mL (0-0.5); Thyroid Stimulating Hormone 0.48 uIU/mL (0.27-4.20)
[2020-12-11 10:18] LABS: Iron 25 ug/dL (59-158); Percent Saturation 14.3 % (20-50); Total Iron Binding Capacity 174 mcg/dl; Unsaturated Iron Binding 149 ug/dL (112-347)
[2020-12-11] MEDS: FUROsemide 10 mg/mL SDV 4mL 40 MG IVP (10:20)
[2020-12-11] MEDS: zinc gluconate 50 mg Tablet PO (10:20)
[2020-12-11] MEDS: dexamethasone 10 mg/mL INJ 6 MG IVP (10:20)
--- NOTE | 2020-12-11 10:47 | PC.SOCIAL ---
IMM Update: pg 2 of IMM updated and reviewed w/ patient. Copy provided.
[2020-12-11] MEDS: vancomycin 1,500 MG/300 ML PIGGYBACK 200 MG IV ×2 (11:22→23:42)
[2020-12-11 11:38] LABS: Glucose Point of Care 106 mg/dL (70-110)
[2020-12-11 11:46] LABS: Add Urine Microscopic? NO; Charge for UA Resulting for Rev
[2020-12-11 11:52] LABS: Bilirubin Urine Neg (Negative); Blood Urine Neg (Negative); Glucose Urine UA Norm (Normal); Ketones Urine Negative (Negative); Leukocyte Esterase Urine Negative (Negative); Nitrate Urine Negative (Negative); Protein Urine Neg (Negative); Urine Appearance Clear (CLEAR); Urine Color Yellow (Yellow); Urobilinogen Urine Norm (Negative); pH Urine 6.5 (5-7)
[2020-12-11] MEDS: ipratropium-albuterol 3 mL Neb INHALATION ×4 (11:53→23:25)
[2020-12-11] MEDS: piperacillin-tazobactam 3.375 GM in sodium chloride 0.9% (plus) 50 ML IV ×2 (13:02→21:16)
--- NOTE | 2020-12-11 13:34 | P.PN_ITS ---
Subjective Subjective: Interval history: Hospital course, labs appreciated. Examination lying comfortably on high flow nasal cannula 8 L saturating 92%. States he is feeling tired today. Denies any nausea vomiting, headache. States he is not working well with I-S and Acapella. States he does Acapella once or twice a day but is not doing I-S. Denies any nausea vomiting, headache. Eating appropriately. We discussed the need for start of nebulization and he is agreeable for the same. We also discussed starting steroids and he is agreeable. Vitals/I&O/Wt Last Vital Signs Temp 98.2 F 12/11/20 11:41 Pulse 89 12/11/20 12:17 Resp 22 H 12/11/20 12:17 BP 129/83 12/11/20 11:41 Pulse Ox 91 12/11/20 12:17 12/10/20 12/11/20 12/11/20 22:59 06:59 14:59 Intake Total 100 / 500 120 / 620 480 / 480 Output Total 775 / 925 300 / 1225 1400 / 1400 Balance -675 / -425 -180 / -605 -920 / -920 Weight last 48 hrs Weight 86.409 kg Data : 12/11/20 05:16 12/11/20 05:16 Micro: Microbiology 12/11/20 11:26 Legionella Urinary Antigen - Final Urine,Voided 12/11/20 11:26 Bacterial Antigens - Final Urine Kidney 12/09/20 16:00 Gram Stain - Final Sputum - Expectorated Sputum Sputum Culture - Final A&P Assessment and plan (1) Hypoxia: Status: Acute (2) Pneumonia due to 2019 novel coronavirus: Status: Acute (3) Diabetes: Status: Acute (4) Hypertension: Status: Acute Additional A&P Information Hypoxia secondary to COVID-19 pneumonia: Moderate disease. Oxygen supplementation keeping saturation over 88%. Dexamethasone 6 mg daily. Has finished her remdesivir 5-day course. Will not extend the treatment. Vitamin C, zinc. DuoNebs every 4 hour, budesonide twice daily. Pulmonary toilet with incentive spirometry flutter valve. We will monitor inflammatory markers including ferritin, ESR, CRP, D-dimer, fibrinogen. D-dimer elevated. CTA negative for pulmonary embolism. For now we will start patient on full dose anticoagulation with Eliquis 5 mg twice daily as patient requiring high oxygen supplementation. Will monitor for anemia or blood loss. Check sputum culture, procalcitonin, urine Legionella, bacterial antigen, blood culture. Low suspicion of bacterial infection for now. For now start patient on vancomycin and Zosyn. Will de-escalate antibiotics as per the culture results. If MRSA negative will stop Zosyn. Given hypoxia will try to keep patient as negative as possible. Check echocardiogram. IV Lasix 40 mg stat. Strict input output charting, daily weights. Transaminitis: Secondary to severe COVID-19. Improving. Monitor. Diabetes: Monitor blood sugars. Insulin sliding scale at moderate dose protocol. HTN: Goal blood pressure less than 140/90 mmHg. Blood pressure soft. Hold off home antihypertensives. HLD Full code. Eliquis will help with DVT prophylaxis. Protonix for PUD prophylaxis. Attestations Medical Necessity Statement*: Requires further hospitalization for management of hypoxia secondary COVID-19 pneumonia Time Spent in Patient Care: Greater than 35 minutes (>than 50% of time spent in counselling and/or direct pt care on unit) . Coding Level of Care Code Acute Housing Specialist for [facility] Fwd Diagnoses Hypoxia R09.02 Pneumonia due to 2019 novel coronavirus U07.1; J12.82 Diabetes E11.9 Hypertension I10
[2020-12-11] MEDS: pantoprazole DR 40 mg Tablet PO (14:22)
[2020-12-11] MEDS: ferrous gluconate 324 mg Tablet PO (17:27)
[2020-12-11] MEDS: ascorbic acid 500 mg Tablet PO (17:27)
--- NOTE | 2020-12-11 18:37 | PC.NURSE ---
REPORT GIVEN TO MCKENZIE IN ICU. THIS NURSE AND RT JEREMI SAFELY TRANSPORTED PT TO ICU. PT IS RESTING IN BED COMFORTABLY IN ICU.
[2020-12-11] MEDS: budesonide 0.5 mg/2 mL Neb INHALATION (20:29)
[2020-12-11] MEDS: apixaban 5 mg Tablet PO (21:15)
[2020-12-11 21:18] LABS: Glucose Point of Care 184 mg/dL (70-110)
[2020-12-11] MEDS: acetaminophen 325 mg Tablet 650 MG PO (23:05)
[2020-12-12] VITALS (236 sets, daily range): BP systolic 99–135; BP diastolic 73–88; PULSE 60–120; RESP 14–35; TEMP 36.4–37.3; O2SAT 72–98
[2020-12-12] MEDS: ipratropium-albuterol 3 mL Neb INHALATION ×6 (03:08→23:28)
[2020-12-12 04:48] LABS: Basophils % 0.1 %; Hematocrit 39.8 % (42.0-52.0); Hemoglobin 13.3 g/dL (11.7-16.6); Lymphocytes # 0.8 10^3/uL (0.8-4.8); Lymphocytes % 5.9 %; Mean Corpuscular HGB Conc 33.4 g/dL (30.0-36.0); Mean Corpuscular Hemoglobin 28.8 pg (28.0-34.0); Mean Corpuscular Volume 86.1 fl (80-94); Mean Platelet Volume 9.6 fL (7.4-10.4); Monocytes # 0.7 10^3/uL (0.2-0.9); Monocytes % 5.8 %; Neutrophils # 11.12 10^3/uL (1.8-7.7); Neutrophils % 86.6 %; Nucleated Red Blood Cells % 0 %; Platelet Count 532 10^3/cmm (130-400); Red Blood Count 4.62 10^6/uL (4.1-5.3); Red Cell Distribution Width 12.9 % (12.1-15.1); White Blood Count 12.8 10^3/uL (4.0-10.0)
[2020-12-12 04:58] LABS: ABG PH Result 7.56 (7.35-7.45); Alveolar-Arterial Oxygen Gradi 53.6 mmHg (5-10); Arterial Blood Gas Hematocrit 45.2 % (42-52); Base Excess ABG 8.7 mmol/L (-2.0-2.0); Blood Gas Allen Test Pos; Blood Gas Sample Site Radial, right; Blood Gas Sample Type Arterial; Carboxyhemoglobin 0.8 %THgb (0.4-20.1); HCO3 ABG 31.2 mmol/L (22-26); HGB O2 Sat 81.4 % (95-100); Ionized Calcium Level - ABG 1.1 mmol/L (1.1-1.4); Methemoglobin 0.6 % (0.4-1.5); Oxygen Device HAG; Oxygen Saturation ABG 82.6; PO2 ABG 41.7 mmHg (80.0-100.0); Potassium Level - ABG 3.1 mmol/L (3.5-5.0); Total Hemoglobin 14.8 g/dL (14-18)
[2020-12-12 05:01] LABS: Estmated Average Glucose 117; Hemoglobin A1C 5.7 % (4.0-6.0)
[2020-12-12 05:02] LABS: D Dimer 0.82 ug/mIFEU (0-0.59)
[2020-12-12 05:03] LABS: C Reactive Protein 147.9 mg/L (0.0-4.9)
[2020-12-12 05:06] LABS: Alanine Aminotransferase 88 U/L (0-41); Albumin Level 2.8 g/dL (3.5-5.2); Alkaline Phosphatase 116 IU/L (40-130); Anion Gap 14.4 (5-19); Aspartate Amino Transferase 47 U/L (0-40); Blood Urea Nitrogen 12 mg/dL (8-23); Calcium 8.3 mg/dL (8.5-10.5); Carbon Dioxide 28 mmol/L (22-29); Chloride 97 mmol/L (98-107); Globulin 3.7 g/dL (1.3-4.6); Glomerular Filtration Rate 165.4 mL/min (90-130); Glucose 150 mg/dL (65-115); Osmolality Calculated 285 mOsm/kg (285-295); Potassium 3.4 mmol/L (3.5-5.1); Sodium 136 mmol/L (136-145); Total Bilirubin 0.5 mg/dL (0.15-1.2); Total Protein 6.5 g/dL (6.6-8.7)
[2020-12-12] MEDS: piperacillin-tazobactam 3.375 GM in sodium chloride 0.9% (plus) 50 ML IV ×3 (05:07→20:29)
[2020-12-12 05:25] LABS: Erythrocyte Sedimentation Rate 94 mm/hr (0-10)
[2020-12-12 05:32] LABS: Ferritin 3216 ng/mL (30-400)
--- NOTE | 2020-12-12 06:00 | XRR_ITS ---
PROCEDURE INFORMATION: Exam: XR Chest Exam date and time: 12/12/2020 6:00 AM Age: 70 years old Clinical indication: Dyspnea; Additional info: Covid TECHNIQUE: Imaging protocol: XR of the chest. Views: 1 view. Total images: 1 COMPARISON: CR XR chest 1V portable [id number] 12/11/2020 6:18 AM FINDINGS: Lungs: Stable bilateral pleuroparenchymal disease. Pleural spaces: No pneumothorax. Heart/Mediastinum: Heart size is stable when compared to the prior exam. Bones/joints: Osseous structures are unchanged from the prior exam. XR/XR chest 1V portable [id number] IMPRESSION: Stable bilateral pleuroparenchymal disease.
[2020-12-12] MEDS: benzonatate 100 mg Capsule 200 MG PO (07:57)
[2020-12-12] MEDS: guaiFENesin-dextromethorphan UDC 10 mL PO ×2 (07:57→15:03)
[2020-12-12] MEDS: zinc gluconate 50 mg Tablet PO (07:57)
[2020-12-12] MEDS: pantoprazole DR 40 mg Tablet PO (07:57)
[2020-12-12] MEDS: ferrous gluconate 324 mg Tablet PO ×2 (07:57→18:11)
[2020-12-12] MEDS: ascorbic acid 500 mg Tablet PO ×2 (07:57→18:11)
[2020-12-12] MEDS: apixaban 5 mg Tablet PO ×2 (07:58→20:29)
[2020-12-12 08:04] LABS: Glucose Point of Care 139 mg/dL (70-110)
[2020-12-12] MEDS: budesonide 0.5 mg/2 mL Neb INHALATION ×2 (08:43→19:33)
[2020-12-12] MEDS: fluticasone nasal spray 16gm Btl 2 SPRAY NASAL ×2 (10:33→18:47)
[2020-12-12] MEDS: morphine 4 mg/mL SDV 1 mL 1 MG IVP ×2 (10:34→15:03)
[2020-12-12] MEDS: FUROsemide 10 mg/mL SDV 4mL 40 MG IVP (10:34)
[2020-12-12] MEDS: potassium chloride ER 20 mEq Tablet 40 MEQ PO (10:34)
[2020-12-12] MEDS: atorvastatin 40 mg Tablet 20 MG PO (10:34)
[2020-12-12] MEDS: dexamethasone 10 mg/mL INJ 6 MG IVP (10:34)
[2020-12-12 11:25] LABS: Vancomycin Trough 6.5 ug/mL (10-15)
[2020-12-12 12:32] LABS: Glucose Point of Care 183 mg/dL (70-110)
[2020-12-12] MEDS: vancomycin 1,250 MG/250 ML PIGGYBACK 200 MG IV ×2 (12:45→20:06)
--- NOTE | 2020-12-12 13:38 | PM.PN ---
Subjective Subjective: Interval history: Overnight patient yesterday was moved to the ICU because of requiring high oxygen supplementation. Patient seen multiple times during the day. On examination today morning he was saturating 80s on 90% heated high flow FiO2. As per the nurse and respiratory therapist patient has been breathing through his mouth because he feels stuffed up. Patient states he is feeling tired, does not want to work with I-S and Acapella. We had a long discussion regarding I-S and Acapella as much as possible to prevent from patient being intubated because of high oxygen requirement. Also discussed that we can try to put him on oxygen along with heated high flow to help him nasal stuffiness and starting nasal care. Patient verbalized understanding. During the day patient continued to do better in the evening he was down to 50 L 70% with 5 L oxygen mask saturating 94%. He has been doing better with I-S and Acapella as well. Patient continues to deny any nausea, vomiting, headache. Documented urine output in last 24 hours 2300 cc. Vitals/I&O/Wt Last Vital Signs Temp 97.6 F 12/12/20 12:05 Pulse 105 H 12/12/20 13:30 Resp 22 H 12/12/20 13:30 BP 120/78 12/12/20 13:30 Pulse Ox 87 L 12/12/20 13:30 12/11/20 12/12/20 12/12/20 22:59 06:59 14:59 Intake Total 170 / 950 470 / 1420 50 / 50 Output Total 500 / 2300 Balance 170 / -850 -30 / -880 50 / 50 Weight last 48 hrs Weight 83.603 kg Data : 12/13/20 03:39 12/13/20 03:39 Micro: Microbiology 12/11/20 10:40 Gram Stain - Final Sputum - Expectorated Sputum Sputum Culture - Preliminary 12/11/20 11:26 Legionella Urinary Antigen - Final Urine,Voided 12/11/20 11:26 Bacterial Antigens - Final Urine Kidney 12/09/20 16:00 Gram Stain - Final Sputum - Expectorated Sputum Sputum Culture - Final A&P Assessment and plan (1) Hypoxia: Status: Acute (2) Pneumonia due to 2019 novel coronavirus: Status: Acute (3) Diabetes: Status: Acute (4) Hypertension: Status: Acute Additional A&P Information Hypoxia secondary to COVID-19 pneumonia: Moderate to severe disease. Oxygen supplementation keeping saturation over 88%. Continue with dexamethasone 6 mg daily. Has finished her remdesivir 5-day course. Will not extend the treatment. Vitamin C, zinc. DuoNebs every 4 hour, budesonide twice daily. Pulmonary toilet with incentive spirometry flutter valve. We will monitor inflammatory markers including ferritin, ESR, CRP, D-dimer, fibrinogen. Inflammatory markers are trending up. Patient has low suspicion of bacterial pneumonia with negative sputum culture and procalcitonin. Patient asked to be anti-inflammatory such. Will give 1 dose of Actemra. D-dimer elevated. CTA negative for pulmonary embolism. For now continue with full dose anticoagulation with Eliquis 5 mg twice daily as patient requiring high oxygen supplementation. Will monitor for anemia or blood loss. Procalcitonin, urine Legionella bacterial antigen negative. Sputum culture so far no growth. For now continue with vancomycin and Zosyn as patient is requiring high oxygen supplementation. Given hypoxia will try to keep patient as negative as possible. Echocardiogram results appreciated. IV Lasix 40 mg stat. Strict input output charting, daily weights. Given high oxygen requirement we will consult pulmonology. For now we will try to avoid intubation as much as possible. Transaminitis: Secondary to severe COVID-19. Improving. Monitor. Diabetes: Monitor blood sugars. Insulin sliding scale at moderate dose protocol. HTN: Goal blood pressure less than 140/90 mmHg. Blood pressure soft. Hold off home antihypertensives. HLD Full code. Eliquis will help with DVT prophylaxis. Protonix for PUD prophylaxis. Patient's care discussed in detail with his daughter Ms. Cruz over the phone. We discussed unfortunately patient is requiring high oxygen supplementation currently and is not working well with I-S and Acapella even after multiple counseling. We discussed that if patient continues to worsen eventually he will need to be intubated. Trying to avoid it as much as can. We also discussed that currently patient is on empiric antibiotic chances of bacterial pneumonia are low. Patient daughter verbalized understanding. Attestations Medical Necessity Statement*: Requires further hospitalization for management of ARDS secondary to COVID-19 pneumonia. Critical Care Time: The high probability of a clinically significant, sudden or life threatening deterioration of the patient's [pulmonary] system(s) required my full and direct attention, intervention and personal management. The critical care time is as shown. This time is in addition to time spent performing any reported procedures but includes the following: [x] Data and vital sign review and interpretation [x] Patient assessment, examination and intervention [x] Documentation [x] Medication orders and management Critical Care Time (min): 70 Coding Level of Care Code Acute Template Clerk for [facility] Fwd Diagnoses Hypoxia R09.02 Pneumonia due to 2019 novel coronavirus U07.1; J12.82 Diabetes E11.9 Hypertension I10
[2020-12-12] MEDS: benzonatate 100 mg Capsule PO ×2 (15:03→20:29)
--- NOTE | 2020-12-12 17:50 | PM.CONSULT ---
Providers/Reason For Consult Consulting Physician/Specialty*: Pulmonary critical care medicine Reason for Consult*: Severe COVID-19 Attending Physician: Mau Powell MD Primary Care Provider: Corrie Pardo MD History of Present Illness History of Present Illness Jorje Armendariz is a 70 year old male with a past medical history of hypertension, diabetes and hyperlipidemia presented to the hospital on December 06 with fever, chills, muscle ache and shortness of breath. The patient tested positive for COVID-19. CT angiogram revealed no pulmonary embolism. The patient had bilateral diffuse infiltrate consistent with COVID-19. He was treated with remdesivir. Initially the patient was on 2 L oxygen which had later increased prompting the patient's transfer to the ICU. In the ICU today the patient is currently on 40 L flow with 70% FiO2 as well as a nonrebreather mask. The patient appears to be comfortable. His saturation is in the mid 90s. The patient is using incentive spirometry and Acapella valve. His recent echocardiogram did not reveal any significant cardiac etiology which could be responsible for pulmonary edema or valvular heart disease. The patient had been diuresed with good urine output. Started on dexamethasone. He has elevated CRP and is in the process of getting Actemra. Review of Systems Narrative: General: No fevers, positive for fatigue Skin: No rash HEENT: No significant nasal congestion Neck: There is no neck swelling Respiratory: Cough minimal sputum production and exertional shortness of breath Cardiovascular: No chest pain Gastrointestinal: No abdominal pain, nausea, vomiting Musculoskeletal: No joint pain or swelling Neurological: Patient is awake alert and oriented x3, no paralysis, gross motor function is normal. Psychiatric: No anxiety or depression. Meds/Allergies Home Medications and Allergies Home Medications Medication Instructions Recorded Confirmed Last Taken Type atenolol 100 mg tablet 50 mg PO DAILY tab 10/17/20 12/06/20 12/06/20 History cetirizine 10 mg tablet 10 mg PO DAILY PRN 10/17/20 12/06/20 12/06/20 History colestipol 1 gram tablet 4 g PO BID tab 10/17/20 12/06/20 12/06/20 History hydrochlorothiazide 50 mg tablet 50 mg PO DAILY 10/17/20 12/06/20 12/06/20 History metformin 500 mg tablet 250 mg PO BID tab 0712/06/20 12/06/20 History pravastatin 80 mg tablet 80 mg PO DAILY 10/17/20 12/06/20 12/06/20 History sildenafil 100 mg tablet 100 mg PO DAILY PRN 10/17/20 12/06/20 Unknown History cholecalciferol (vitamin D3) 50 50 mcg PO DAILY 11/01/20 12/06/20 12/06/20 History mcg (2,000 unit) capsule garlic 2,000 mg PO DAILY 11/01/20 12/06/20 12/06/20 History lisinopril 40 mg tablet 20 mg PO DAILY tab 11/01/20 12/06/20 12/06/20 History magnesium 250 mg tablet 500 mg PO DAILY 11/01/20 12/06/20 12/06/20 History multivitamin 1 tab PO DAILY 11/01/20 12/06/20 12/06/20 History omega 2-nry-djb-fish oil 1,200 mg 1,200 cap PO BID cap 11/01/20 12/06/20 12/06/20 History (144 mg-216 mg) capsule allopurinol 100 mg PO TID 12/06/20 12/06/20 12/06/20 History ascorbic acid (vitamin C) [Vitamin 250 mg PO DAILY 12/06/20 12/06/20 12/06/20 History C] guaifenesin [Mucinex] 1,200 mg PO BID 12/06/20 12/06/20 12/06/20 History melatonin 5 mg PO DAILY PRN 12/06/20 12/06/20 Unknown History potassium citrate 10 meq PO DAILY 12/06/20 12/06/20 12/06/20 History Allergies Allergy/AdvReac Type Severity Reaction Status Date / Time niacin Allergy Unknown Verified 11/01/20 09:46 simvastatin Allergy Unknown Verified 11/01/20 09:46 Sulfa (Sulfonamide Allergy Unknown Verified 11/01/20 09:46 Antibiotics) Current Medications Current Medications Generic Name Dose Route Start Last Admin Trade Name Freq PRN Reason Stop Dose Admin Acetaminophen 650 mg 12/06/20 17:21 12/11/20 23:05 Acetaminophen 325 Mg Tablet PO 650 mg Q6H PRN Administration Mild/Mod Pain Or Temp >/= 101 Albuterol/Ipratropium 3 ml 12/11/20 12:00 12/12/20 15:30 Ipratropium-Albuterol 3 Ml Neb INHALATION 3 ml Q4H.RESPIRATORY TIM Administration Apixaban 5 mg 12/11/20 21:00 12/12/20 07:58 Apixaban 5 Mg Tablet PO 5 mg BID@0900,2100 TIM Administration Ascorbic Acid 500 mg 12/11/20 18:00 12/12/20 07:57 Ascorbic Acid 500 Mg Tablet PO 500 mg BID TIM Administration Atorvastatin Calcium 20 mg 12/12/20 10:00 12/12/20 10:34 Atorvastatin 40 Mg Tablet PO 20 mg DAILY TIM Administration Benzonatate 100 mg 12/12/20 15:00 12/12/20 15:03 Benzonatate 100 Mg Capsule PO 100 mg TID TIM Administration Budesonide 0.5 mg 12/11/20 20:00 12/12/20 08:43 Budesonide 0.5 Mg/2 Ml Neb INHALATION 0.5 mg BID.RESPIRATORY TIM Administration Dexamethasone 6 mg 12/11/20 10:30 12/12/20 10:34 Dexamethasone 10 Mg/Ml Inj IVP 6 mg Q24H TIM Administration Ferrous Gluconate 324 mg 12/11/20 18:00 12/12/20 07:57 Ferrous Gluconate 324 Mg Tablet PO 324 mg BIDWM TIM Administration Fluticasone Propionate 2 spray 12/12/20 09:00 12/12/20 10:33 Fluticasone Nasal [place] 16gm Btl NASAL 2 spray BID TIM Administration Guaifenesin/Dextromethorphan 10 ml 12/06/20 17:34 12/12/20 15:03 Guaifenesin-Dextromethorphan Udc 10 Ml PO 10 ml Q4H PRN Administration COUGH Piperacillin Sod/Tazobactam 50 mls @ 12.5 mls/hr 12/11/20 13:00 12/12/20 13:39 Sod 3.375 gm/ Sodium Chloride IV 12.5 mls/hr Q8H TIM Administration Protocol Vancomycin/PEG/NADA/Lysine/Water 1,250 mg in 250 mls @ 200 mls/hr 12/12/20 12:30 12/12/20 14:19 Vancocin IV Infused Q8H TIM Infusion Insulin Aspart 0 unit 12/06/20 18:00 12/12/20 12:51 Insulin Aspart 100 Unit/1 Ml SUBCUT Not Given WM&BEDTIME TIM Protocol Morphine Sulfate 1 mg 12/12/20 09:21 12/12/20 15:03 Morphine 4 Mg/Ml Sdv 1 Ml IVP 1 mg Q4H PRN Administration SEVERE PAIN Pantoprazole Sodium 40 mg 12/11/20 14:30 12/12/20 07:[address] 40 Mg Tablet PO 40 mg DAILY TIM Administration Zinc Gluconate 50 mg 12/11/20 09:45 12/12/20 07:57 Zinc Gluconate 50 Mg Tablet PO 50 mg DAILY TIM Administration PFSH Acute PFSH: Medical History Diabetes Elevated PSA Erectile dysfunction Gout Hyperlipidemia Hypertension IBS (irritable bowel syndrome) Insomnia Peyronie's disease Surgical History H/O colonoscopy with polypectomy H/O excision of mass fatty tumor on back S/P appendectomy Family History Mother , at age 75 Diabetes Father , at age 76 Cancer brain Social History Smoking and tobacco status: former smoker Alcohol intake: never Marital status: / Current occupational status: employed History of recent travel: No Vitals/I&O/Wt Last Vital Signs Temp 97.6 F 12/12/20 12:05 Pulse 88 12/12/20 15:35 Resp 18 12/12/20 15:33 BP 108/75 12/12/20 14:55 Pulse Ox 95 12/12/20 15:33 12/12/20 12/12/20 12/12/20 06:59 14:59 22:59 Intake Total 470 / 1420 300 / 300 Output Total 500 / 2300 Balance -30 / -880 300 / 300 Weight last 48 hrs Weight 184 lb 5 oz Physical Exam Narrative: EXAM NARRATIVE: General: Patient is awake alert and oriented, in no distress while resting. Neck: No JVD Respiratory: Auscultation: Coarse breath sound, no wheezing or rhonchi Cardiovascular: Regular rate and rhythm, S1-S2 present, no murmur, no peripheral edema. Abdomen: Soft, nontender, nondistended, positive bowel sound Musculoskeletal: No obvious joint deformity Skin: No rash Neuro: Mental status is normal, no gross cranial nerve deficit, normal motor function Data Micro: Micro: Microbiology 12/11/20 10:40 MRSA Culture - Fin al Nose 12/11/20 10:40 Gram Stain - Final Sputum - Expector ated Sputum Sputum Culture - P reliminary Other Data: Attestation for Other Data: I personally reviewed and interpreted the following: Other data: I have reviewed the patient laboratory, microbiologic and radiologic data. The chest x-ray today revealed diffuse bilateral infiltrates A&P Assessment and plan (1) Pneumonia due to 2019 novel coronavirus: The patient has severe COVID-19. Currently the patient is in the ICU requiring high flow nasal cannula 40 L, 70% with additional oxygen with a facemask. The patient has received 5-day of remdesivir therapy. Currently he is on dexamethasone is in the process of getting Tocilizumab. The patient is broadly covered with antibiotic. The patient appears to be comfortable. I believe the patient will make recovery. We will support with high flow nasal cannula and additional oxygen if necessary. We would be okay with SPO2 of 85%. No indication for expedited intubation at this point. Status: Acute (2) Acute respiratory failure with hypoxia: See above Status: Acute Coding Level of Care Code Acute Drop Count Associate for [facility] Diagnoses Pneumonia due to 2019 novel coronavirus U07.1; J12.82 Acute respiratory failure with hypoxia J96.01
[2020-12-12] MEDS: tocilizumab 400 MG, tocilizumab 200 MG, tocilizumab 70 MG in sodium chloride 0.9% (100 ... 100 MG IV (18:32)
[2020-12-12 18:56] LABS: Glucose Point of Care 252 mg/dL (70-110)
--- NOTE | 2020-12-12 20:15 | PC.NURSE ---
Family Updated Daughter, Nancy, called and received update on patient status. Daughter made request for staff to explain reasoning behind frequent position changes again. Education provided to patient regarding her phone call, her request, and information about the benefits of changing positions often. Patient verbalized understanding.
[2020-12-12 20:20] LABS: Glucose Point of Care 323 mg/dL (70-110)
--- NOTE | 2020-12-12 20:30 | PC.NURSE ---
Phone Call Phone call received from a friend of the patient requesting patient updates. Patient asked if this would be allowed; patient responded that he would like this friend to just gather information from the daughter who is on his contact list.
[2020-12-13] VITALS (61 sets, daily range): BP systolic 103–138; BP diastolic 71–95; PULSE 63–144; RESP 14–33; TEMP 36.5–36.6; O2SAT 90–100; BMI 28.3
[2020-12-13] MEDS: ipratropium-albuterol 3 mL Neb INHALATION ×2 (03:11→08:21)
[2020-12-13 04:17] LABS: Basophils % 0.2 %; Hematocrit 39.8 % (42.0-52.0); Hemoglobin 13.2 g/dL (11.7-16.6); Lymphocytes # 1.1 10^3/uL (0.8-4.8); Lymphocytes % 5.7 %; Mean Corpuscular HGB Conc 33.2 g/dL (30.0-36.0); Mean Corpuscular Hemoglobin 28.4 pg (28.0-34.0); Mean Corpuscular Volume 85.8 fl (80-94); Mean Platelet Volume 10.3 fL (7.4-10.4); Monocytes # 0.8 10^3/uL (0.2-0.9); Monocytes % 4.2 %; Neutrophils % 87.5 %; Nucleated Red Blood Cells % 0 %; Platelet Count 631 10^3/cmm (130-400); Red Blood Count 4.64 10^6/uL (4.1-5.3); Red Cell Distribution Width 12.8 % (12.1-15.1); White Blood Count 18.3 10^3/uL (4.0-10.0)
[2020-12-13] MEDS: vancomycin 1,250 MG/250 ML PIGGYBACK 200 MG IV ×3 (04:25→20:20)
[2020-12-13] MEDS: guaiFENesin-dextromethorphan UDC 10 mL PO ×3 (04:25→18:34)
[2020-12-13] MEDS: piperacillin-tazobactam 3.375 GM in sodium chloride 0.9% (plus) 50 ML IV ×3 (04:26→20:20)
[2020-12-13 04:38] LABS: C Reactive Protein 69.6 mg/L (0.0-4.9)
[2020-12-13 04:41] LABS: Alanine Aminotransferase 87 U/L (0-41); Albumin Level 2.8 g/dL (3.5-5.2); Alkaline Phosphatase 135 IU/L (40-130); Anion Gap 16.5 (5-19); Aspartate Amino Transferase 60 U/L (0-40); Blood Urea Nitrogen 17 mg/dL (8-23); Calcium 8.4 mg/dL (8.5-10.5); Carbon Dioxide 27 mmol/L (22-29); Chloride 98 mmol/L (98-107); Globulin 3.8 g/dL (1.3-4.6); Glucose 183 mg/dL (65-115); Osmolality Calculated 292 mOsm/kg (285-295); Potassium 3.5 mmol/L (3.5-5.1); Sodium 138 mmol/L (136-145); Total Bilirubin 0.3 mg/dL (0.15-1.2); Total Protein 6.6 g/dL (6.6-8.7)
[2020-12-13 05:31] LABS: Ferritin 2942 ng/mL (30-400)
--- NOTE | 2020-12-13 06:26 | PC.NURSE ---
Shift Note Frequent safety and comfort rounds continue. Patient's vital signs remained stable overnight and medications were administered per MAR. Patient remains on heated high flow at 40 L on 70% FIO2. Patient stated that he did not sleep very well last night due to care interventions. Orders and/or nursing care completed as indicated. Patient monitored for response to intervention and treatment(s). Education provided includes frequent position changes, the use/indication for SCDs, and reinforcement teaching regarding insulin. Patient verbalized understanding. Patient will continue to be monitored.
[2020-12-13] MEDS: budesonide 0.5 mg/2 mL Neb INHALATION ×2 (08:21→20:17)
--- NOTE | 2020-12-13 08:33 | PC.NUTR ---
Nutrition note: Added Glucerna with meals per nurse request. Will follow up as appropriate.
[2020-12-13] MEDS: ascorbic acid 500 mg Tablet PO ×2 (09:09→18:34)
[2020-12-13] MEDS: atorvastatin 40 mg Tablet 20 MG PO (09:09)
[2020-12-13] MEDS: ferrous gluconate 324 mg Tablet PO ×2 (09:10→18:34)
[2020-12-13] MEDS: dexamethasone 10 mg/mL INJ 6 MG IVP (09:10)
[2020-12-13] MEDS: benzonatate 100 mg Capsule PO ×3 (09:10→20:21)
[2020-12-13] MEDS: pantoprazole DR 40 mg Tablet PO (09:10)
[2020-12-13] MEDS: apixaban 5 mg Tablet PO ×2 (09:10→20:23)
[2020-12-13] MEDS: zinc gluconate 50 mg Tablet PO (09:16)
[2020-12-13] MEDS: FUROsemide 10 mg/mL SDV 4mL 40 MG IVP (09:31)
[2020-12-13] MEDS: metoprolol tartrate 50 mg Tablet PO ×2 (09:32→20:23)
[2020-12-13] MEDS: fluticasone nasal spray 16gm Btl 2 SPRAY NASAL ×2 (09:34→18:40)
[2020-12-13 09:47] LABS: Glucose Point of Care 268 mg/dL (70-110)
[2020-12-13] MEDS: fentaNYL 12 mcg Patch 1 PATCH TRANSDERMA (09:53)
--- NOTE | 2020-12-13 10:04 | PC.CHAP ---
Pastoral Care Encounter/Spiritual Assessment Type of Contact [] Declined crack off person visit [] Patient/Family/Request visit [] Outpatient visit [] Follow-up visit [] Physician referral [] Code/Alert [x] Routine visit [] Staff referral [] Actively dying [] Patient sleeping [] Family support [] [] Out of room [] Palliative care [] [] Receiving care in room [] Pre-surgical visit [] Trauma [] Long length of stay [x] ICU visit [] Other: Relational/Emotional Strength [] Patient feels connected with others/family/visitors/staff [] Distress [] Loneliness/isolation [] Abandonment Spirituality of Patient [] Person of Beatriz [] Attends Moravian of their Beatriz [] Believes in Prayer [] Reads Bible or Hinduism materials [] There are Spiritual issues to be addressed Cash Management Associate Interventions [x] Prayer [] Active listening [] Non-anxious presence [] Spiritual/emotional support [] Crisis/trauma care [] Spiritual counseling [] Bereavement support [] Provided bereavement packet [] Provided Bible/devotional materials [] Provided toy/stuffed animal, coloring book to patient or family member [] Provided Communion [] Anointing/Western [] Salvation [x] Completed spiritual assessment [] Other: Impact on Illness or Injury [] Angry [] Fearful [] Anxious [] Often cries [] Exhaustion [] Unable to work [] Unable to attend quaker [] Unable to walk/stand [] Unable to read [] Unable to drive [] Unable to eat/drink [] Unable to sleep [] Unable to be with family [] Patient intubated [] Other: Summary Time spent with patient
[2020-12-13 11:47] LABS: Glucose Point of Care 255 mg/dL (70-110)
--- NOTE | 2020-12-13 12:00 | PC.SOCIAL ---
IMM Not Updated Pg. 2 of IMM not updated. Patient not anticipated to discharge within 48hours.
[2020-12-13 12:13] LABS: Vancomycin Trough 11.5 ug/mL (10-15)
[2020-12-13] MEDS: ipratropium 0.5 mg/2.5 mL Neb INHALATION ×3 (13:03→20:17)
[2020-12-13] MEDS: levalbuterol 0.63 mg/3 mL Neb INHALATION ×2 (14:18→20:17)
--- NOTE | 2020-12-13 16:10 | PM.PN ---
Subjective Subjective: Interval history: Patient seen multiple times during the day. He is improving. Currently on 35 L 45% oxygen supplementation saturating 94%. Patient outlook has improved as well. He is working well with [employer] and [employer] now. He is looking a lot more jovial. We did discuss that he continues to do the same we can plan to transfer him out of ICU soon. Vitals/I&O/Wt Last Vital Signs Temp 97.9 F 12/13/20 12:30 Pulse 87 12/13/20 15:29 Resp 16 12/13/20 15:27 BP 113/79 12/13/20 15:00 Pulse Ox 94 12/13/20 15:27 12/13/20 12/13/20 12/13/20 06:59 14:59 22:59 Intake Total 300 / 1033.5 300 / 300 Output Total 275 / 1525 Balance 25 / -491.5 300 / 300 Weight last 48 hrs Weight 89.358 kg Weight 83.603 kg Physical Exam Narrative: EXAM NARRATIVE: General: No acute distress, AO x3, mildly tired appearing, on heated high flow. HEENT: PERRLA, pupils bilaterally equal and reactive Chest: Bilateral bronchial breath sounds, occasional crackles present all over the lung san, better air entry bilaterally. CVS: S1-S2 regular, no murmurs, no tachycardia, no gallops, no rubs Abdomen: Soft, nontender, no organomegaly, bowel sounds present Neuro: No focal deficits, no facial deformity, AO x3, power 5/5 in all limbs Data : 12/13/20 03:39 12/13/20 03:39 Micro: Microbiology 12/11/20 10:40 Gram Stain - Final Sputum - Expectorated Sputum Sputum Culture - Final 12/11/20 10:40 MRSA Culture - Final Nose A&P Assessment and plan (1) Pneumonia due to 2019 novel coronavirus: Status: Acute (2) Diabetes: Status: Acute (3) Hypertension: Status: Acute (4) Acute respiratory failure with hypoxia: Status: Acute (5) ARDS (adult respiratory distress syndrome): Status: Acute Additional A&P Information Hypoxia secondary to COVID-19 pneumonia: Moderate to severe disease. Oxygen supplementation keeping saturation over 88%. Post 1 dsoe of Actemra on 12/12. Continue with dexamethasone 6 mg daily. Has finished her remdesivir 5-day course. Will not extend the treatment. Vitamin C, zinc. DuoNebs every 4 hour, budesonide twice daily. Pulmonary toilet with incentive spirometry flutter valve. We will monitor inflammatory markers including ferritin, ESR, CRP, D-dimer, fibrinogen. Inflammatory markers are trending up. D-dimer elevated. CTA negative for pulmonary embolism. For now continue with full dose anticoagulation with Eliquis 5 mg twice daily as patient requiring high oxygen supplementation. Will monitor for anemia or blood loss. Procalcitonin, urine Legionella bacterial antigen negative. Sputum culture so far no growth. For now continue with vancomycin and Zosyn as patient is requiring high oxygen supplementation. Given hypoxia will try to keep patient as negative as possible. Echocardiogram results appreciated. IV Lasix 40 mg stat. Strict input output charting, daily weights. Net 1700 negative. Start patient on morphine 1 mg IV every 4 hours as needed for pain, fentanyl patch for chest to help with aggressive pulmonary toilet. Appreciate pulmonology recommendations. Transaminitis: Secondary to severe COVID-19. Improving. Monitor. Diabetes: Monitor blood sugars. Insulin sliding scale at moderate dose protocol. HTN: Goal blood pressure less than 140/90 mmHg. Blood pressure soft. Hold off home antihypertensives. HLD Full code. Eliquis will help with DVT prophylaxis. Protonix for PUD prophylaxis. Patient's care discussed in detail with daughter Ms. Cruz again. We did discuss that his oxygen supplementation is currently improving and these are positive signs though he still remains critically ill for now. All the questions were answered. Attestations Medical Necessity Statement*: Requires further hospitalization for ARDS secondary to COVID-19 pneumonia requiring persistent heated high flow. Critical Care Time: The high probability of a clinically significant, sudden or life threatening deterioration of the patient's [pulmonary] system(s) required my full and direct attention, intervention and personal management. The critical care time is as shown. This time is in addition to time spent performing any reported procedures but includes the following: [x] Data and vital sign review and interpretation [x] Patient assessment, examination and intervention [x] Documentation [x] Medication orders and management Critical Care Time (min): 70 Coding Level of Care Code Acute Central Scheduler for [facility] Diagnoses Pneumonia due to 2019 novel coronavirus U07.1; J12.82 Diabetes E11.9 Hypertension I10 Acute respiratory failure with hypoxia J96.01 ARDS (adult respiratory distress syndrome) J80
[2020-12-13 17:22] LABS: Glucose Point of Care 162 mg/dL (70-110)
[2020-12-13] MEDS: trazodone 150 mg Tablet 75 MG PO (20:20)
[2020-12-13 20:21] LABS: Glucose Point of Care 155 mg/dL (70-110)
[2020-12-14] VITALS (44 sets, daily range): BP systolic 122–155; BP diastolic 73–107; PULSE 57–121; RESP 15–27; TEMP 36.3; O2SAT 85–97; BMI 28.3
[2020-12-14] MEDS: ipratropium 0.5 mg/2.5 mL Neb INHALATION ×5 (00:52→15:10)
[2020-12-14] MEDS: levalbuterol 0.63 mg/3 mL Neb INHALATION ×4 (03:48→20:19)
[2020-12-14 05:03] LABS: Basophils % 0.1 %; Hematocrit 36.4 % (42.0-52.0); Hemoglobin 12.1 g/dL (11.7-16.6); Lymphocytes % 4.9 %; Mean Corpuscular HGB Conc 33.2 g/dL (30.0-36.0); Mean Corpuscular Hemoglobin 28.7 pg (28.0-34.0); Mean Corpuscular Volume 86.5 fl (80-94); Mean Platelet Volume 9.7 fL (7.4-10.4); Monocytes % 4.9 %; Nucleated Red Blood Cells % 0 %; Platelet Count 675 10^3/cmm (130-400); Red Blood Count 4.21 10^6/uL (4.1-5.3); White Blood Count 20.2 10^3/uL (4.0-10.0)
[2020-12-14 05:16] LABS: Alanine Aminotransferase 101 U/L (0-41); Albumin Level 2.7 g/dL (3.5-5.2); Alkaline Phosphatase 170 IU/L (40-130); Anion Gap 12.9 (5-19); Aspartate Amino Transferase 61 U/L (0-40); Blood Urea Nitrogen 20 mg/dL (8-23); Calcium 8.3 mg/dL (8.5-10.5); Carbon Dioxide 29 mmol/L (22-29); Chloride 99 mmol/L (98-107); Globulin 3.4 g/dL (1.3-4.6); Glomerular Filtration Rate 165.4 mL/min (90-130); Glucose 133 mg/dL (65-115); Osmolality Calculated 289 mOsm/kg (285-295); Potassium 3.9 mmol/L (3.5-5.1); Sodium 137 mmol/L (136-145); Total Bilirubin 0.4 mg/dL (0.15-1.2); Total Protein 6.1 g/dL (6.6-8.7)
[2020-12-14] MEDS: piperacillin-tazobactam 3.375 GM in sodium chloride 0.9% (plus) 50 ML IV ×3 (05:20→21:25)
[2020-12-14] MEDS: vancomycin 1,250 MG/250 ML PIGGYBACK 200 MG IV ×3 (05:20→21:31)
[2020-12-14 05:26] LABS: D Dimer 0.53 ug/mIFEU (0-0.59)
[2020-12-14 05:37] LABS: Ferritin 1704 ng/mL (30-400)
--- NOTE | 2020-12-14 06:00 | XR_ITS ---
WS: [id number] Portable AP upright chest, 12/14/2020 Clinical Data: covid Comparison: Portable chest, 12/12/2020 Findings: The patchy bilateral pulmonary opacities are not changed. Heart remains enlarged. The aorti c arch shows tortuosity. Monitor leads are on the chest wall. XR/XR chest 1V portable [id number] Impression: 1. No change in patchy bilateral pulmonary opacities consistent with pneumonia. 2. Cardiomegaly and atherosclerosis.
[2020-12-14] MEDS: budesonide 0.5 mg/2 mL Neb INHALATION ×2 (08:36→20:19)
[2020-12-14] MEDS: ferrous gluconate 324 mg Tablet PO ×2 (09:27→18:28)
[2020-12-14] MEDS: zinc gluconate 50 mg Tablet PO (09:27)
[2020-12-14] MEDS: ascorbic acid 500 mg Tablet PO ×2 (09:27→18:28)
[2020-12-14] MEDS: atorvastatin 40 mg Tablet 20 MG PO (09:27)
--- NOTE | 2020-12-14 09:27 | ECG_ITS ---
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 Measurements Intervals [place] Rate: 101 P: 1 MS: 146 QRS: -38 QRSD: 91 T: -7 QT: 347 QTc: 450 Interpretive Statements SINUS TACHYCARDIA LEFT AXIS DEVIATION [QRS AXIS < -30] POSSIBLE ANTERIOR MYOCARDIAL INFARCTION , PROBABLY OLD [30 ms Q WAVE IN V3/V4, OR R < 0.2 mV IN V4] No previous ECG available for comparison Electronically Signed On 12-14-2020 20:34:53 CDT by Duy Tripp M.D. [email or web address]
[2020-12-14] MEDS: fluticasone nasal spray 16gm Btl 2 SPRAY NASAL ×2 (09:28→18:59)
[2020-12-14] MEDS: pantoprazole DR 40 mg Tablet PO (09:28)
[2020-12-14] MEDS: benzonatate 100 mg Capsule PO ×3 (09:28→21:25)
[2020-12-14] MEDS: guaiFENesin 600 mg Tablet 1200 MG PO (09:37)
[2020-12-14] MEDS: metoprolol tartrate 50 mg Tablet PO ×2 (09:37→21:32)
[2020-12-14] MEDS: apixaban 5 mg Tablet PO (09:37)
[2020-12-14] MEDS: guaiFENesin-dextromethorphan UDC 10 mL PO (09:37)
[2020-12-14] MEDS: dexamethasone 10 mg/mL INJ 6 MG IVP (09:38)
--- NOTE | 2020-12-14 09:59 | PM.PN ---
Subjective Subjective: Interval history: Patient continues to do better. Currently on 30 L 45% saturating 95%. Working well with I-S and Acapella. Denies any nausea vomiting, headache. Documented urine output in last 24 hours 1300 cc. Vitals/I&O/Wt Last Vital Signs Temp 97.7 F 12/13/20 20:00 Pulse 92 12/14/20 08:50 Resp 18 12/14/20 08:50 BP 127/95 12/14/20 06:30 Pulse Ox 90 12/14/20 08:50 12/13/20 12/14/20 12/14/20 22:59 06:59 14:59 Intake Total 300 / 600 50 / 650 250 / 250 Output Total 1025 / 1025 300 / 1325 Balance -725 / -425 -250 / -675 250 / 250 Weight last 48 hrs Weight 89.358 kg Weight 89.358 kg Physical Exam Narrative: EXAM NARRATIVE: General: No acute distress, AO x3, HEENT: PERRLA, pupils bilaterally equal and reactive Chest: Bilateral bronchial breath sounds, occasional crackles present all over the lung san, better air entry bilaterally. CVS: S1-S2 regular, no murmurs, no tachycardia, no gallops, no rubs Abdomen: Soft, nontender, no organomegaly, bowel sounds present Neuro: No focal deficits, no facial deformity, AO x3, power 5/5 in all limbs Data : 12/14/20 04:38 12/14/20 04:38 Micro: Microbiology 12/11/20 10:40 Gram Stain - Final Sputum - Expectorated Sputum Sputum Culture - Final A&P Assessment and plan (1) Pneumonia due to 2019 novel coronavirus: Status: Acute (2) Diabetes: Status: Acute (3) Hypertension: Status: Acute (4) Acute respiratory failure with hypoxia: Status: Acute (5) ARDS (adult respiratory distress syndrome): Status: Acute Additional A&P Information Hypoxia secondary to COVID-19 pneumonia: Moderate to severe disease. Improving. Oxygen supplementation keeping saturation over 88%. Post 1 dsoe of Actemra on 12/12. Continue with dexamethasone 6 mg daily. Has finished her remdesivir 5-day course. Will not extend the treatment. Vitamin C, zinc. Ipratropium/Xopenex every 6 hours, budesonide twice daily. Pulmonary toilet with incentive spirometry flutter valve. Wean oxygen supplementation as possible keeping saturation over 88%. We will monitor inflammatory markers including ferritin, ESR, CRP, D-dimer, fibrinogen. Inflammatory markers are trending up. D-dimer elevated. CTA negative for pulmonary embolism. Eliquis 2.5 mg twice daily. Will monitor for anemia or blood loss. Procalcitonin, urine Legionella bacterial antigen negative. Sputum culture so far no growth. For now continue with vancomycin and Zosyn as patient is requiring high oxygen supplementation. Given hypoxia will try to keep patient as negative as possible. Echocardiogram results appreciated. Euvolemic. For now hold off on any further diuresis or IV fluids. Strict input output charting, daily weights. Net around 2 L negative. Start patient on morphine 1 mg IV every 4 hours as needed for pain, fentanyl patch for chest to help with aggressive pulmonary toilet. Appreciate pulmonology recommendations. Transaminitis: Secondary to severe COVID-19. Improving. Monitor. Diabetes: Monitor blood sugars. Insulin sliding scale at moderate dose protocol. HTN: Goal blood pressure less than 140/90 mmHg. Blood pressure soft. Hold off home antihypertensives. HLD Full code. Eliquis will help with DVT prophylaxis. Protonix for PUD prophylaxis. Patient's care discussed in detail with daughter Ms. Cruz again. We did discuss that his oxygen supplementation is currently improving and these are positive signs though he still remains critically ill for now. All the questions were answered. Can transfer out of ICU to [facility] if bed needed. Attestations Medical Necessity Statement*: Was further hospitalization for management of hypoxia/ARDS secondary to COVID-19 pneumonia Time Spent in Patient Care: Greater than 35 minutes (>than 50% of time spent in counselling and/or direct pt care on unit). Coding Level of Care Code Acute Government Teacher for [facility] Diagnoses Pneumonia due to 2019 novel coronavirus U07.1; J12.82 Diabetes E11.9 Hypertension I10 Acute respiratory failure with hypoxia J96.01 ARDS (adult respiratory distress syndrome) J80
[2020-12-14 10:43] LABS: Troponin T (5th) Once 11 ng/L (0-15)
[2020-12-14 10:47] LABS: Glucose Point of Care 109 mg/dL (70-110)
[2020-12-14 10:50] LABS: NT Pro B Type Natriuretic Pept 214 pg/mL (0-125)
[2020-12-14 11:27] LABS: Glucose Point of Care 155 mg/dL (70-110)
[2020-12-14] MEDS: nystatin 100,000 unit/mL UDC 5 mL 200000 UNIT PO ×3 (13:56→21:25)
[2020-12-14 15:08] LABS: Troponin T (5th) Once 12 ng/L (0-15)
[2020-12-14 17:31] LABS: Glucose Point of Care 135 mg/dL (70-110)
--- NOTE | 2020-12-14 19:13 | PC.NURSE ---
RT Shift Note: Pt doing well. He is very motivated to use his IS and [place]cap[place]. He is now on Heated high flow at 30 liters and 40%. his lungs sound clear. Pt has sit up in chair all of shift. He is enjoying the fruit plates with Glucerna for meals. He has used the urinal several time today. He hasa has a firm BM today. Frequent safety and respiratory rounds continue. Orders completed as indicated. Patient monitored pre and post treatments throughout shift. Patient did tolerate treatments appropriately. Condition Improved. Patient and/or retention representative educated on respiratory treatment and medications. Patient and/or retention representative verbalized understanding. Will continue to monitor patient progress.
[2020-12-14] MEDS: trazodone 150 mg Tablet 75 MG PO (21:25)
[2020-12-14] MEDS: apixaban 5 mg Tablet 2.5 MG PO (21:32)
[2020-12-14 21:37] LABS: Glucose Point of Care 136 mg/dL (70-110)
[2020-12-15] VITALS (28 sets, daily range): BP systolic 111–163; BP diastolic 74–95; PULSE 52–89; RESP 15–29; TEMP 36.3–37; O2SAT 87–98; BMI 28.3
[2020-12-15] MEDS: ipratropium 0.5 mg/2.5 mL Neb INHALATION ×4 (03:32→21:21)
[2020-12-15] MEDS: levalbuterol 0.63 mg/3 mL Neb INHALATION ×4 (03:32→21:21)
[2020-12-15 04:03] LABS: Basophils % 0.2 %; Hematocrit 36.9 % (42.0-52.0); Hemoglobin 12.1 g/dL (11.7-16.6); Lymphocytes # 1.3 10^3/uL (0.8-4.8); Lymphocytes % 6.3 %; Mean Corpuscular HGB Conc 32.8 g/dL (30.0-36.0); Mean Corpuscular Hemoglobin 29.2 pg (28.0-34.0); Mean Corpuscular Volume 88.9 fl (80-94); Mean Platelet Volume 9.6 fL (7.4-10.4); Monocytes # 1.1 10^3/uL (0.2-0.9); Monocytes % 5.3 %; Neutrophils # 16.97 10^3/uL (1.8-7.7); Nucleated Red Blood Cells % 0 %; Platelet Count 672 10^3/cmm (130-400); Red Blood Count 4.15 10^6/uL (4.1-5.3); White Blood Count 20.5 10^3/uL (4.0-10.0)
[2020-12-15 04:21] LABS: Alanine Aminotransferase 132 U/L (0-41); Albumin Level 2.7 g/dL (3.5-5.2); Alkaline Phosphatase 187 IU/L (40-130); Anion Gap 13.1 (5-19); Aspartate Amino Transferase 77 U/L (0-40); Blood Urea Nitrogen 18 mg/dL (8-23); Calcium 8.4 mg/dL (8.5-10.5); Carbon Dioxide 29 mmol/L (22-29); Chloride 100 mmol/L (98-107); Glomerular Filtration Rate 165.4 mL/min (90-130); Glucose 139 mg/dL (65-115); Osmolality Calculated 290 mOsm/kg (285-295); Potassium 4.1 mmol/L (3.5-5.1); Sodium 138 mmol/L (136-145); Total Bilirubin 0.4 mg/dL (0.15-1.2); Total Protein 5.7 g/dL (6.6-8.7)
[2020-12-15 04:22] LABS: C Reactive Protein 16.2 mg/L (0.0-4.9)
[2020-12-15 04:40] LABS: Slide Review Slide Review Perform
[2020-12-15] MEDS: piperacillin-tazobactam 3.375 GM in sodium chloride 0.9% (plus) 50 ML IV ×3 (05:24→22:39)
[2020-12-15] MEDS: vancomycin 1,250 MG/250 ML PIGGYBACK 200 MG IV ×3 (05:24→21:27)
[2020-12-15 08:31] LABS: Glucose Point of Care 89 mg/dL (70-110)
[2020-12-15] MEDS: budesonide 0.5 mg/2 mL Neb INHALATION ×2 (08:33→21:21)
[2020-12-15] MEDS: acetaminophen 325 mg Tablet 650 MG PO (09:09)
[2020-12-15] MEDS: nystatin 100,000 unit/mL UDC 5 mL 200000 UNIT PO ×4 (09:09→20:28)
[2020-12-15] MEDS: guaiFENesin-dextromethorphan UDC 10 mL PO (09:09)
[2020-12-15] MEDS: guaiFENesin 600 mg Tablet 1200 MG PO (09:09)
[2020-12-15] MEDS: metoprolol tartrate 50 mg Tablet PO ×2 (09:10→20:29)
[2020-12-15] MEDS: atorvastatin 40 mg Tablet 20 MG PO (09:10)
[2020-12-15] MEDS: benzonatate 100 mg Capsule PO ×3 (09:10→20:29)
[2020-12-15] MEDS: ascorbic acid 500 mg Tablet PO ×2 (09:10→16:51)
[2020-12-15] MEDS: ferrous gluconate 324 mg Tablet PO ×2 (09:10→16:51)
[2020-12-15] MEDS: pantoprazole DR 40 mg Tablet PO (09:10)
[2020-12-15] MEDS: zinc gluconate 50 mg Tablet PO (09:10)
[2020-12-15] MEDS: apixaban 5 mg Tablet 2.5 MG PO ×2 (09:11→20:29)
[2020-12-15] MEDS: fluticasone nasal spray 16gm Btl 2 SPRAY NASAL ×2 (09:11→16:52)
[2020-12-15 09:32] LABS: Erythrocyte Sedimentation Rate 19 mm/hr (0-10)
[2020-12-15] MEDS: FUROsemide 10 mg/mL SDV 4mL 40 MG IVP (09:34)
[2020-12-15] MEDS: dexamethasone 10 mg/mL INJ 6 MG IVP (09:35)
--- NOTE | 2020-12-15 09:51 | PC.SOCIAL ---
IMM Update Pg. 2 of IMM updated. Initialed, dated, and timed. Copy provided to patient.
--- NOTE | 2020-12-15 12:00 | PC.NURSE ---
Report faxed to [facility].
[2020-12-15 12:11] LABS: Glucose Point of Care 121 mg/dL (70-110)
--- NOTE | 2020-12-15 13:10 | PM.PN ---
Subjective Subjective: Interval history: No acute events overnight. Patient states he continues to do better. Sitting up in chair. Working really well with I-S and [employer]. During the day was turned down to high flow nasal cannula. Denies any nausea vomiting, headache. Vitals/I&O/Wt Last Vital Signs Temp 97.8 F 12/15/20 08:00 Pulse 70 12/15/20 12:49 Resp 18 12/15/20 12:49 BP 116/86 12/15/20 12:00 Pulse Ox 98 12/15/20 12:49 12/14/20 12/15/20 12/15/20 22:59 06:59 14:59 Intake Total 1017 / 2117 50 / 2167 300 / 300 Output Total 675 / 1400 1150 / 2550 Balance 342 / 717 -1100 / -383 300 / 300 Weight last 48 hrs Weight 89.358 kg Weight 89.358 kg Physical Exam Narrative: EXAM NARRATIVE: General: No acute distress, AO x3, HEENT: PERRLA, pupils bilaterally equal and reactive Chest: Bilateral bronchial breath sounds, occasional crackles present all over the lung san, better air entry bilaterally. CVS: S1-S2 regular, no murmurs, no tachycardia, no gallops, no rubs Abdomen: Soft, nontender, no organomegaly, bowel sounds present Neuro: No focal deficits, no facial deformity, AO x3, power 5/5 in all limbs Data : 12/15/20 03:20 12/15/20 03:20 Micro: Microbiology 12/14/20 11:49 Gram Stain - Final Sputum - Expectorated Sputum Sputum Culture - Preliminary A&P Assessment and plan (1) Pneumonia due to 2019 novel coronavirus: Status: Acute (2) Diabetes: Status: Acute (3) Hypertension: Status: Acute (4) Acute respiratory failure with hypoxia: Status: Acute (5) ARDS (adult respiratory distress syndrome): Status: Acute Additional A&P Information Hypoxia secondary to COVID-19 pneumonia: Moderate to severe disease. Improving. Oxygen supplementation keeping saturation over 88%. Post 1 dsoe of Actemra on 12/12. Continue with dexamethasone 6 mg daily. Has finished her remdesivir 5-day course. Will not extend the treatment. Vitamin C, zinc. Ipratropium/Xopenex every 6 hours, budesonide twice daily. Pulmonary toilet with incentive spirometry flutter valve. Wean oxygen supplementation as possible keeping saturation over 88%. We will monitor inflammatory markers including ferritin, ESR, CRP, D-dimer, fibrinogen. Inflammatory markers improving after Actemra. CRP down to 16 from 160, ESR down to 19 from 94, D-dimer normalized D-dimer normalized now. CTA negative for pulmonary embolism. Eliquis 2.5 mg twice daily. Will monitor for anemia or blood loss. Procalcitonin, urine Legionella bacterial antigen negative. Sputum culture so far no growth. Repeat sputum culture sent on December 14. For now continue with vancomycin and Zosyn as patient is requiring high oxygen supplementation. Given hypoxia will try to keep patient as negative as possible. Echocardiogram results appreciated. Euvolemic. Repeat IV Lasix 40 mg stat Strict input output charting, daily weights. Net around 2 L negative. Start patient on morphine 1 mg IV every 4 hours as needed for pain, fentanyl patch for chest to help with aggressive pulmonary toilet. Appreciate pulmonology recommendations. Transaminitis: Secondary to severe COVID-19. Improving. Monitor. Diabetes: Monitor blood sugars. Insulin sliding scale at moderate dose protocol. HTN: Goal blood pressure less than 140/90 mmHg. Blood pressure soft. Hold off home antihypertensives. HLD Full code. Eliquis will help with DVT prophylaxis. Protonix for PUD prophylaxis. Patient's care discussed in detail with daughter Ms. Cruz again. We did discuss that his oxygen supplementation is currently improving and these are positive signs though he still remains critically ill for now. All the questions were answered. Plan for the day: Continue to wean oxygen supplementation keeping saturation of 88%. Transfer to [facility]. Continue with dexamethasone, aggressive pulmonary toilet, vancomycin and Zosyn for now. Repeat Lasix 40 mg IV today Attestations Medical Necessity Statement*: Requires further hospitalization for management of hypoxia secondary COVID-19 pneumonia Time Spent in Patient Care: Greater than 35 minutes (>than 50% of time spent in counselling and/or direct pt care on unit). Coding Level of Care Code Acute Administration Assistant for [facility] Fwd Diagnoses Pneumonia due to 2019 novel coronavirus U07.1; J12.82 Diabetes E11.9 Hypertension I10 Acute respiratory failure with hypoxia J96.01 ARDS (adult respiratory distress syndrome) J80
[2020-12-15] MEDS: allopurinol 100 mg Tablet PO ×2 (14:02→20:28)
--- NOTE | 2020-12-15 14:04 | PC.RESP ---
RT Shift Note Frequent safety and respiratory rounds continue. Orders completed as indicated. Patient monitored pre and post treatments throughout shift. Patient [Did.] tolerate treatments appropriately. Condition [DidNotChange]. Patient and/or graphic art sales representative educated on respiratory treatment and medications. Patient and/or graphic art sales representative [verbalized understanding]. Will continue to monitor patient progress.
--- NOTE | 2020-12-15 14:30 | PC.NURSE ---
Pt transferred to room 264 via W/C. All belongings with pt. Further update given to LOURDES Monzon.
--- NOTE | 2020-12-15 14:47 | PC.NURSE ---
Daughter, Nancy, notified of transfer and updated on his progress, he is now on 5lpm/high flow.
[2020-12-15 17:41] LABS: Glucose Point of Care 147 mg/dL (70-110)
[2020-12-15] MEDS: trazodone 150 mg Tablet 75 MG PO (20:29)
[2020-12-15 21:09] LABS: Glucose Point of Care 126 mg/dL (70-110)
[2020-12-16] VITALS (20 sets, daily range): BP systolic 109–163; BP diastolic 70–93; PULSE 51–84; RESP 16–20; TEMP 36.4–36.9; O2SAT 92–98; BMI 28.3
[2020-12-16] MEDS: ipratropium 0.5 mg/2.5 mL Neb INHALATION ×4 (03:29→20:40)
[2020-12-16] MEDS: levalbuterol 0.63 mg/3 mL Neb INHALATION ×4 (03:29→20:40)
[2020-12-16] MEDS: vancomycin 1,250 MG/250 ML PIGGYBACK 200 MG IV ×3 (04:30→20:19)
--- NOTE | 2020-12-16 06:00 | XRR_ITS ---
PROCEDURE INFORMATION: Exam: XR Chest Exam date and time: 12/16/2020 6:00 AM Age: 70 years old Clinical indication: Shortness of breath; Additional info: Covid TECHNIQUE: Imaging protocol: XR of the chest. Views: 1 view. Total images: 1 COMPARISON: CR XR chest 1V portable [id number] 12/14/2020 5:25 AM FINDINGS: Lungs: Bilateral pulmonary opacities are again noted with the right-sided opacities showing interval worsening. Pleural spaces: Unremarkable. No pleural effusion. No pneumothorax. Heart/Mediastinum: Mild cardiomegaly stable. Bones/joints: Osseous structures are unchanged from the prior exam. XR/XR chest 1V portable [id number] IMPRESSION: 1. Mild cardiomegaly stable. 2. Bilateral pulmonary opacities are again noted with the right-sided opacities showing interval worsening.
[2020-12-16] MEDS: piperacillin-tazobactam 3.375 GM in sodium chloride 0.9% (plus) 50 ML IV ×3 (06:01→23:23)
[2020-12-16 06:12] LABS: Basophils # 0.1 10^3/uL (0.0-0.1); Basophils % 0.4 %; Hemoglobin 11.9 g/dL (11.7-16.6); Lymphocytes # 1.6 10^3/uL (0.8-4.8); Lymphocytes % 8.1 %; Mean Corpuscular HGB Conc 32.2 g/dL (30.0-36.0); Mean Corpuscular Hemoglobin 28.4 pg (28.0-34.0); Mean Corpuscular Volume 88.3 fl (80-94); Mean Platelet Volume 9.4 fL (7.4-10.4); Monocytes # 1.1 10^3/uL (0.2-0.9); Monocytes % 5.4 %; Neutrophils # 15.28 10^3/uL (1.8-7.7); Nucleated Red Blood Cells % 0 %; Platelet Count 706 10^3/cmm (130-400); Red Blood Count 4.19 10^6/uL (4.1-5.3); Red Cell Distribution Width 12.9 % (12.1-15.1); White Blood Count 19.4 10^3/uL (4.0-10.0)
[2020-12-16 06:26] LABS: Glucose Point of Care 93 mg/dL (70-110)
[2020-12-16 06:37] LABS: Alanine Aminotransferase 127 U/L (0-41); Albumin Level 2.7 g/dL (3.5-5.2); Alkaline Phosphatase 161 IU/L (40-130); Aspartate Amino Transferase 57 U/L (0-40); Blood Urea Nitrogen 19 mg/dL (8-23); Calcium 8.3 mg/dL (8.5-10.5); Carbon Dioxide 29 mmol/L (22-29); Chloride 100 mmol/L (98-107); Globulin 2.9 g/dL (1.3-4.6); Glomerular Filtration Rate 165.4 mL/min (90-130); Glucose 87 mg/dL (65-115); Osmolality Calculated 286 mOsm/kg (285-295); Sodium 137 mmol/L (136-145); Total Bilirubin 0.3 mg/dL (0.15-1.2); Total Protein 5.6 g/dL (6.6-8.7)
[2020-12-16 07:21] LABS: Neutrophils % 86.1 %
[2020-12-16 07:22] LABS: Slide Review Slide Review Perform
[2020-12-16] MEDS: pantoprazole DR 40 mg Tablet PO (08:20)
[2020-12-16] MEDS: benzonatate 100 mg Capsule PO ×3 (08:20→20:26)
[2020-12-16] MEDS: zinc gluconate 50 mg Tablet PO (08:20)
[2020-12-16] MEDS: ascorbic acid 500 mg Tablet PO ×2 (08:20→17:30)
[2020-12-16] MEDS: allopurinol 100 mg Tablet PO ×3 (08:20→20:26)
[2020-12-16] MEDS: ferrous gluconate 324 mg Tablet PO ×2 (08:20→17:30)
[2020-12-16] MEDS: metoprolol tartrate 50 mg Tablet PO ×2 (08:20→20:26)
[2020-12-16] MEDS: atorvastatin 40 mg Tablet 20 MG PO (08:20)
[2020-12-16] MEDS: apixaban 5 mg Tablet 2.5 MG PO ×2 (08:21→20:26)
[2020-12-16] MEDS: nystatin 100,000 unit/mL UDC 5 mL 200000 UNIT PO ×4 (08:21→20:26)
[2020-12-16] MEDS: budesonide 0.5 mg/2 mL Neb INHALATION ×2 (08:54→20:40)
[2020-12-16] MEDS: dexamethasone 10 mg/mL INJ 6 MG IVP (10:30)
[2020-12-16 11:20] LABS: Glucose Point of Care 101 mg/dL (70-110)
--- NOTE | 2020-12-16 13:47 | P.PN_ITS ---
Subjective Subjective: Interval history: No acute events overnight. Patient doing really well. Transfer to [facility] floor yesterday. Currently on 4 L oxygen supplementation saturating 96%. On examination having breakfast. States he is not really doing incentive spirometry and flutter valve as well today as he was doing yesterday. On further counseling agrees to do with like he was doing be fore. He understands that I-S and [employer] will be able to get him home as soon as possible and most likely will get him off oxygen as soon as possible as well. Patient is hopeful for going home tomorrow. Vitals/I&O/Wt Last Vital Signs Temp 97.7 F 12/16/20 12:00 Pulse 51 L 12/16/20 12:00 Resp 16 12/16/20 12:00 BP 144/87 12/16/20 12:00 Pulse Ox 98 12/16/20 12:00 12/15/20 12/16/20 12/16/20 22:59 06:59 14:59 Intake Total 790 / 2143 300 / 2443 650 / 650 Output Total 800 / 1750 200 / 1950 950 / 950 Balance -10 / 393 100 / 493 -300 / -300 Weight last 48 hrs Weight 89.358 kg Weight 89.358 kg Physical Exam Narrative: EXAM NARRATIVE: General: No acute distress, AO x3, HEENT: PERRLA, pupils bilaterally equal and reactive Chest: Bilateral bronchial breath sounds, occasional crackles present all over the lung san, better air entry bilaterally. CVS: S1-S2 regular, no murmurs, no tachycardia, no gallops, no rubs Abdomen: Soft, nontender, no organomegaly, bowel sounds present Neuro: No focal deficits, no facial deformity, AO x3, power 5/5 in all limbs Data : 12/16/20 06:03 12/16/20 06:03 Micro: Microbiology 12/14/20 11:49 Gram Stain - Final Sputum - Expectorated Sputum Sputum Culture - Final A&P Assessment and plan (1) Pneumonia due to 2019 novel coronavirus: Status: Acute (2) Diabetes: Status: Acute (3) Hypertension: Status: Acute (4) Acute respiratory failure with hypoxia: Status: Acute (5) ARDS (adult respiratory distress syndrome): Status: Acute Additional A&P Information Hypoxia secondary to COVID-19 pneumonia: Moderate to severe disease. Improving. Oxygen supplementation keeping saturation over 88%. Post 1 dsoe of Actemra on 12/12. Continue with dexamethasone 6 mg daily. Has finished her remdesivir 5-day course. Will not extend the treatment. Vitamin C, zinc. Ipratropium/Xopenex every 6 hours, budesonide twice daily. Pulmonary toilet with incentive spirometry flutter valve. Wean oxygen supplementation as possible keeping saturation over 88%. We will monitor inflammatory markers including ferritin, ESR, CRP, D-dimer, fibrinogen. Inflammatory markers improving after Actemra. CRP down to 16 from 160, ESR down to 19 from 94, D-dimer normalized D-dimer normalized now. CTA negative for pulmonary embolism. Eliquis 2.5 mg twice daily. Will monitor for anemia or blood loss. Procalcitonin, urine Legionella bacterial antigen negative. Sputum culture so far no growth. Repeat sputum culture sent on December 14. For now continue with vancomycin and Zosyn as patient is requiring high oxygen supplementation. Given hypoxia will try to keep patient as negative as possible. Echocardiogram results appreciated. Euvolemic. Repeat IV Lasix 40 mg stat Strict input output charting, daily weights. Net around 2 L negative. Start patient on morphine 1 mg IV every 4 hours as needed for pain, fentanyl patch for chest to help with aggressive pulmonary toilet. Appreciate pulmonology recommendations. Transaminitis: Secondary to severe COVID-19. Improving. Monitor. Diabetes: Monitor blood sugars. Insulin sliding scale at moderate dose protocol. HTN: Goal blood pressure less than 140/90 mmHg. Blood pressure soft. Hold off home antihypertensives. HLD Full code. Eliquis will help with DVT prophylaxis. Protonix for PUD prophylaxis. Patient's care discussed in detail with daughter Ms. Cruz again. We did discuss that his oxygen supplementation is currently improving and these are positive signs though he still remains critically ill for now. All the questions were answered. Plan for the day: Continue to wean oxygen supplementation keeping saturation of 88%. Continue with dexamethasone, aggressive pulmonary toilet, vancomycin and Zosyn for now. Ambulate today. Plan to discharge tomorrow if oxygen supplementation requires less than 5 L. Can try oxygen pendent. Attestations Medical Necessity Statement*: Requires further hospitalization for management of hypoxia secondary to COVID-19 pneumonia. Time Spent in Patient Care: Greater than 35 minutes (>than 50% of time spent in counselling and/or direct pt care on unit) . Coding Level of Care Code Acute [employer] Fabric[employer] Supervisor for [facility] Fwd Diagnoses Pneumonia due to 2019 novel coronavirus U07.1; J12.82 Diabetes E11.9 Hypertension I10 Acute respiratory failure with hypoxia J96.01 ARDS (adult respiratory distress syndrome) J80
[2020-12-16 17:27] LABS: Glucose Point of Care 146 mg/dL (70-110)
--- NOTE | 2020-12-16 18:30 | PC.NURSE ---
Shift Note Frequent safety and comfort rounds continue. Orders and/or nursing care completed as indicated. Patient monitored for response to intervention and treatment(s). Patient sat up in chair during each meal today. Patient is currently sitting up watching television without complaint. Will continue to monitor.
[2020-12-16] MEDS: trazodone 150 mg Tablet 75 MG PO (20:27)
[2020-12-16 20:46] LABS: Glucose Point of Care 134 mg/dL (70-110)
[2020-12-17] VITALS (11 sets, daily range): BP systolic 119–143; BP diastolic 67–88; PULSE 53–85; RESP 15–18; TEMP 36.5–37.1; O2SAT 87–96
[2020-12-17] MEDS: levalbuterol 0.63 mg/3 mL Neb INHALATION ×2 (02:29→08:30)
[2020-12-17] MEDS: ipratropium 0.5 mg/2.5 mL Neb INHALATION ×2 (02:29→08:30)
[2020-12-17 04:19] LABS: Vancomycin Trough 20.8 ug/mL (10-15)
[2020-12-17 04:22] LABS: C Reactive Protein 6.6 mg/L (0.0-4.9)
--- NOTE | 2020-12-17 05:16 | PC.PHAR ---
Pharmacokinetic dosing service Date: 12/17/20 Time: 0500 Patient: Floor: Weight: 89.358 Kilograms Vancomycin single level analysis: Current dose being given: mg Current dosing interval: hrs Current infusion time (hrs): 1.5 Single level Trough Data: Trough level obtained: 20.8 mcg/ml Timing of trough - # of hrs before next dose: 1 Hrs Desired peak: 40 mcg/ml Desired trough: 15 mcg/ml Diagnosis: Relevant medical/social history: Cultures and sensitivities: Other labs: Estimated PK Parameters: New rate constant (shukri): 0.080 hr-1 Half-life: 8.66 Hours Vd from levels: 80.42 Liters (0.7 L/kg) CLvanco= 6.434 L/hr Estimated New Dose and Interval Recommended dose: 2281.9 mg Recommended interval: 13.8 Hrs Patient response: Patient is responding to treatment [yes/no] wbc decreasing, S/SX reduced [yes/no] Renal function is stable/unstable Recommendations: Give Vancomycin 1250 mg q 12 hrs. Infuse over 1.5 hrs Expected Cpeak: 23.7 mcg/mL Expected Ctrough: 10.2 mcg/mL AUC 0-24 /HARSHIL Data: HARSHIL 0.5 mcg/mL: AUC/HARSHIL: 777.1 HARSHIL 1.0 mcg/mL: AUC/HARSHIL: 388.6 Recommended labs and intervals: Measure Bun and Scr 3 times/week. Renal dosing of other antibiotics (review renal dosing of other medications and list guidelines here): Thank you for the consult, will continue to follow. Signature: Blanca Londono [facility]
[2020-12-17] MEDS: piperacillin-tazobactam 3.375 GM in sodium chloride 0.9% (plus) 50 ML IV (05:36)
[2020-12-17 06:33] LABS: Glucose Point of Care 95 mg/dL (70-110)
[2020-12-17] MEDS: ferrous gluconate 324 mg Tablet PO (07:59)
[2020-12-17] MEDS: zinc gluconate 50 mg Tablet PO (08:00)
[2020-12-17] MEDS: ascorbic acid 500 mg Tablet PO (08:00)
[2020-12-17] MEDS: allopurinol 100 mg Tablet PO (08:00)
[2020-12-17] MEDS: benzonatate 100 mg Capsule PO (08:00)
[2020-12-17] MEDS: pantoprazole DR 40 mg Tablet PO (08:01)
[2020-12-17] MEDS: atorvastatin 40 mg Tablet 20 MG PO (08:01)
[2020-12-17] MEDS: apixaban 5 mg Tablet 2.5 MG PO (08:02)
[2020-12-17] MEDS: nystatin 100,000 unit/mL UDC 5 mL 200000 UNIT PO (08:02)
[2020-12-17] MEDS: budesonide 0.5 mg/2 mL Neb INHALATION (08:30)
[2020-12-17] MEDS: metoprolol tartrate 50 mg Tablet PO (09:19)
[2020-12-17] MEDS: vancomycin 1,250 MG/250 ML PIGGYBACK 200 MG IV (09:22)
[2020-12-17] MEDS: dexamethasone 10 mg/mL INJ 6 MG IVP (11:01)
[2020-12-17 11:48] LABS: Glucose Point of Care 108 mg/dL (70-110)
--- NOTE | 2020-12-17 11:51 | P.DS_ITS ---
Discharge Providers Date of Admission: 12/06/20 15:20 Date of Discharge: December 17, 2020 Attending Provider at Admission: Donavan Ambrose MD Attending Provider at Discharge: Mau Powell MD Consults: Pulmonology: Dr. Hou Primary Care Provider: Corrie Pardo MD Diagnoses at Discharge Discharge Diagnosis (1) Pneumonia due to 2019 novel coronavirus: Status: Acute (2) Diabetes: Status: Acute (3) Hypertension: Status: Acute (4) Acute respiratory failure with hypoxia: Status: Acute (5) ARDS (adult respiratory distress syndrome): Status: Acute Reason for Visit Reason for Visit: SOB, Cough, Fatique, Fever Hospital Course Hospital Course Jorje Armendariz is a 70 year old male with a past medical history of hypertension, diabetes and hyperlipidemia presented to the hospital on December 06 with fever, chills, muscle ache and shortness of breath. The patient tested positive for COVID-19. On admission CT angiogram revealed no pulmonary embolism. The patient had bilateral diffuse infiltrate consistent with COVID- 19. He was treated with remdesivir. Initially the patient was on 2 L oxygen which had later increased going as high as 50 rate of 90 % prompting the patient's transfer to the ICU. Patient was given 1 dose of Actemra on November 11. Patient was advised multiple times in detail to work with I-S and Acapella which he gradually started doing and since then his oxygen supplementation started weaning down. Currently he has been saturating well over 90% on 2 to 3 L of oxygen supplementation. He is been discharged in hemodynamically stable condition with the following devices. Advised to take inhalation treatment with Advair and Spiriva daily. Advised to continue using Eliquis which is a blood thinner for next 2 weeks. Advised to continue working with incentive spirometry and flutter valve while at home. Advised to continue taking dexamethasone 6 mg for next 10 days. Advised to follow-up with his primary care provider and his ampoule filler and sealer within the next 4 to 7 days. Can take his COVID-19 vaccination in 3 months. Advised to continue following social distancing and isolation protocol for next 10 days. Advised to come back to the ER if fever of more than 101 Fahrenheit, more difficulty breathing than usual or requiring higher oxygen supplementation. Physical Exam Narrative: EXAM NARRATIVE: General: No acute distress, AO x3, HEENT: PERRLA, pupils bilaterally equal and reactive Chest: Bilateral bronchial breath sounds, occasional crackles present all over the lung san, better air entry bilaterally. CVS: S1-S2 regular, no murmurs, no tachycardia, no gallops, no rubs Abdomen: Soft, nontender, no organomegaly, bowel sounds present Neuro: No focal deficits, no facial deformity, AO x3, power 5/5 in all limbs Discharge Data Data Completed and Pending: Completed Studies During Hospitalization Category Date Time Status CT angio chest PE protcl [id number] Stat Cat Scan 12/06/20 13:20 Completed XR chest 1V [place] [id number] Q48H Exams 12/12/20 06:00 Completed XR chest 1V [place] ble [id number] Q48H Exams 12/14/20 06:00 Completed XR chest 1V [place] ble [id number] Q48H Exams 12/16/20 06:00 Completed XR chest 1V [place] ble [id number] Routine Exams 12/11/20 06:00 Completed XR chest 1V [place] ble [id number] Stat Exams 12/06/20 11:45 Completed CV. echo complete * [id number] Routine Ultrasound 12/11/20 09:33 Completed Pending at discharge Category Date Time Status Erythrocyte Sedim entation Rate Q48H Lab 12/16/20 06:03 Received Erythrocyte Sedim entation Rate Q48H Lab 12/18/20 04:00 Ordered Labs from last 24 hours 12/17/20 12/17/20 12/17/20 10:48 06:13 03:41 POC Glucose 108 95 C-Reactive Protein Vancomycin Trough 20.8 H 12/17/20 12/16/20 12/16/20 03:41 20:19 17:14 POC Glucose 134 H 146 H C-Reactive Protein 6.6 H Vancomycin Trough Addt'l Data from Hospital Stay: Laboratory Results WBC 19.4 10^3/uL (4.0 -10.0) H 12/16/20 06:03 RBC 4.19 10^6/uL (4.1 -5.3) 12/16/20 06:03 Hgb 11.9 g/dL (11.7-1 6.6) 12/16/20 06:03 Hct 37.0 % (42.0-52.0 ) L 12/16/20 06:03 MCV 88.3 fl (80-94) 12/16/20 06:03 MCH 28.4 pg (28.0-34. 0) 12/16/20 06:03 MCHC 32.2 g/dL (30.0-3 6.0) 12/16/20 06:03 RDW 12.9 % (12.1-15.1 ) 12/16/20 06:03 Plt Count 706 10^3/cmm (130 -400) H 12/16/20 06:03 MPV 9.4 fL (7.4-10.4) 12/16/20 06:03 Neut % (Auto) 86.1 % 12/16/20 06:03 Lymph % (Auto) 8.1 % 12/16/20 06:03 [place] % (Auto) 5.4 % 12/16/20 06:03 Eos % (Auto) 0.0 % 12/16/20 06:03 Baso % (Auto) 0.4 % 12/16/20 06:03 Neut # (Auto) 15.28 10^3/uL (1. 8-7.7) H 12/16/20 06:03 Lymph # (Auto) 1.6 10^3/uL (0.8- 4.8) 12/16/20 06:03 [place] # (Auto) 1.1 10^3/uL (0.2- 0.9) H 12/16/20 06:03 Eos # (Auto) 0.0 10^3/uL (0.0- 0.8) 12/16/20 06:03 Baso # (Auto) 0.1 10^3/uL (0.0- 0.1) 12/16/20 06:03 Nucleated RBC % (a uto) 0 % 12/16/20 06:03 Nucleated RBCs # 0.0 /100WBC 12/16/20 06:03 ESR 19 mm/hr (0-10) H 12/14/20 04:38 D-Dimer 0.53 ug/mIFEU (0- 0.59) 12/14/20 04:38 Specimen Type Arterial 12/12/20 04:50 Sample Site Radial, right 12/12/20 04:50 ABG pH 7.56 (7.35-7.45) H 12/12/20 04:50 ABG pCO2 35.0 mmHg (35-45) 12/12/20 04:50 ABG pO2 41.7 mmHg (80.0-1 00.0) L 12/12/20 04:50 ABG HCO3 31.2 mmol/L (22-2 6) H 12/12/20 04:50 ABG O2 Saturation 82.6 12/12/20 04:50 ABG Base Excess 8.7 mmol/L (-2.0- 2.0) H 12/12/20 04:50 David Test Pos 12/12/20 04:50 A-a O2 Gradient 53.6 mmHg (5-10) H 12/12/20 04:50 Hematocrit 45.2 % (42-52) 12/12/20 04:50 Hgb O2 Saturation 81.4 % (95-100) L 12/12/20 04:50 Carboxyhemoglobin 0.8 %THgb (0.4-20 .1) 12/12/20 04:50 Methemoglobin 0.6 % (0.4-1.5) 12/12/20 04:50 Total Hemoglobin 14.8 g/dL (14-18) 12/12/20 04:50 Sodium 137.0 mmol/L (131 -143) 12/12/20 04:50 Potassium 3.1 mmol/L (3.5-5 .0) L 12/12/20 04:50 Glucose 147.0 mg/dL (70-1 15) H 12/12/20 04:50 Ionized Calcium 1.1 mmol/L (1.1-1 .4) 12/12/20 04:50 O2 Delivery Device Hag 12/12/20 04:50 O2 Liters/Min 45.0 % 12/12/20 04:50 FiO2 70.0 % 12/12/20 04:50 Vinyl Welder And [employer]ricator ID Tamma 12/12/20 04:50 Sodium 137 mmol/L (136-1 45) 12/16/20 06:03 Potassium 4.0 mmol/L (3.5-5 .1) 12/16/20 06:03 Chloride 100 mmol/L (98-10 7) 12/16/20 06:03 Carbon Dioxide 29 mmol/L (22-29) 12/16/20 06:03 Anion Gap 12.0 (5-19) 12/16/20 06:03 BUN 19 mg/dL (8-23) 12/16/20 06:03 Creatinine 0.5 mg/dL (0.7-1. 2) L 12/16/20 06:03 GFR Calculation 165.4 mL/min (90- 130) H 12/16/20 06:03 Glucose 87 mg/dL (65-115) 12/16/20 06:03 POC Glucose 108 mg/dL (70-110 ) 12/17/20 10:48 Estimat Average Gl ucose 117 12/12/20 04:26 Hemoglobin A1c 5.7 % (4.0-6.0) 12/12/20 04:26 Calculated Osmolal ity 286 mOsm/kg (285- 295) 12/16/20 06:03 Lactic Acid 1.5 mmol/L (0.5-2 .2) 12/06/20 09:15 Calcium 8.3 mg/dL (8.5-10 .5) L 12/16/20 06:03 Iron 25 ug/dL (59-158) L 12/11/20 05:16 TIBC 174 mcg/dl 12/11/20 05:16 % Saturation 14.3 % (20-50) L 12/11/20 05:16 Unsat Iron Binding 149 ug/dL (112-34 7) 12/11/20 05:16 Ferritin 1704 ng/mL (30-40 0) H 12/14/20 04:38 Total Bilirubin 0.3 mg/dL (0.15-1 .2) 12/16/20 06:03 AST 57 U/L (0-40) H 12/16/20 06:03 ALT 127 U/L (0-41) H 12/16/20 06:03 Alkaline Phosphata se 161 IU/L (40-130) H 12/16/20 06:03 Troponin T Gen 5 n g/L 12 ng/L (0-15) 12/14/20 14:08 C-Reactive Protein 6.6 mg/L (0.0-4.9 ) H 12/17/20 03:41 NT-Pro-B Natriuret Pep 214 pg/mL (0-125) H 12/14/20 04:38 Total Protein 5.6 g/dL (6.6-8.7 ) L 12/16/20 06:03 Albumin 2.7 g/dL (3.5-5.2 ) L 12/16/20 06:03 Globulin 2.9 g/dL (1.3-4.6 ) 12/16/20 06:03 Procalcitonin 0.10 ng/mL (0-0.5 ) 12/13/20 03:39 TSH 0.48 uIU/mL (0.27 -4.20) 12/11/20 05:16 Urine Color Yellow (Yellow) 12/11/20 11:26 Urine Appearance Clear (CLEAR) 12/11/20 11:26 Urine pH 6.5 (5-7) 12/11/20 11:26 Ur Specific Gravit y 1.010 (1.005-1.0 30) 12/11/20 11:26 Urine Protein Neg (Negative) 12/11/20 11:26 Urine Glucose (UA) Norm (Normal) 12/11/20 11:26 Urine Ketones Negative (Negati ve) 12/11/20 11:26 Urine Blood Neg (Negative) 12/11/20 11:26 Urine Nitrate Negative (Negati ve) 12/11/20 11:26 Urine Bilirubin Neg (Negative) 12/11/20 11:26 Urine Urobilinogen Norm mg/dL (Negat layton) 12/11/20 11:26 Ur Leukocyte Gabriela ase Negative (Negati ve) 12/11/20 11:26 Vancomycin Trough 20.8 ug/mL (10-15 ) H 12/17/20 03:41 Nasal/Oral COVID-1 9 PCR Detected H 12/06/20 13:14 SARS-CoV-2 Ag (Rap id) Positive (Negati ve) H 12/06/20 13:14 Impressions Chest CTA 12/06/20 13:20 IMPRESSION: 1. No central pulmonary embolism. Poor opacification beyond the segmental branches. 2. Bilateral, multilobar pneumonia typical for Covid 19. 3. Moderate cardiomegaly. 4. Mild dilatation ascending aorta at 4.6 cm. Chest X-Ray 12/16/20 06:00 IMPRESSION: 1. Mild cardiomegaly stable. 2. Bilateral pulmonary opacities are again noted with the right-sided Opacities showing interval worsening. Echocardiogram: CONCLUSIONS 1-Normal left ventricular cavity size. Normal left ventricular systolic function. No regional wall motion abnormalities. Left ventricular ejection fraction is estimated at 60 %. Grade I/IV diastolic dysfunction (abnormal relaxation filling pattern), normal to mildly elevated filling pressures. 2-There is no pericardial effusion. 3-No significant valve abnormalities. 4-Pulmonary artery systolic pressure is within normal limits. 5-Right atrial pressure is around 5 mm of mercury. Vitals: Last Vital Signs Temp 98.7 F 12/17/20 11:46 Pulse 56 L 12/17/20 11:46 Resp 17 12/17/20 11:46 BP 136/86 12/17/20 11:46 Pulse Ox 96 12/17/20 11:46 Discharge Plan Discharge Patient Disposition: Home Condition: Stable Prescriptions: New Eliquis 5 mg Tablet 2.5 mg PO BID@0900,2100 14 Days Qty: 14 RF: 0 benzonatate 100 mg Capsule 100 mg PO TID PRN (Reason: cough) 14 Days Qty: 10 RF: 0 pantoprazole 40 mg Tablet,Delayed Release (Dr/Ec) 40 mg PO DAILY 14 Days Qty: 14 RF: 0 zinc gluconate 50 mg Tablet 50 mg PO DAILY 14 Days Qty: 14 RF: 0 ferrous gluconate 324 mg (37.5 mg iron) Tablet 324 mg PO BIDWM 30 Days Qty: 30 RF: 0 Advair Diskus 250-50 mcg/dose blister with device 1 inh inhalation BID 14 Days Qty: 28 RF: 0 Spiriva with HandiHaler 18 mcg capsule, w/inhalation device 1 cap inhalation DAILY Qty: 14 RF: 0 dexamethasone 6 mg tablet 6 mg PO Q24H 7 Days Qty: 7 RF: 0 Continued magnesium 250 mg tablet 500 mg PO DAILY RF: 0 multivitamin Tablet 1 tab PO DAILY RF: 0 omega 2-kcr-mnx-fish oil 1,200 (144-216) mg capsule 1,200 cap PO BID RF: 0 cholecalciferol (vitamin D3) 50 mcg (2,000 unit) capsule 50 mcg PO DAILY RF: 0 atenolol 100 mg tablet 50 mg PO DAILY RF: 0 cetirizine 10 mg tablet 10 mg PO DAILY PRN (Reason: Allergy Symptoms) RF: 0 colestipol 1 gram tablet 4 g PO BID RF: 0 metformin 500 mg tablet 250 mg PO BID RF: 0 pravastatin 80 mg tablet 80 mg PO DAILY RF: 0 sildenafil 100 mg tablet 100 mg PO DAILY PRN (Reason: ERECTILE DISFUNCTION) RF: 0 lisinopril 40 mg tablet 20 mg PO DAILY RF: 0 allopurinol 100 mg Tablet 100 mg PO TID RF: 0 potassium citrate 10 mEq (1,080 mg) Tablet Extended Release 10 meq PO DAILY RF: 0 Mucinex 1,200 mg Tablet Extended Release 12hr 1,200 mg PO BID RF: 0 melatonin 5 mg Tablet 5 mg PO DAILY PRN (Reason: Sleep) RF: 0 Changed Vitamin C 250 mg Tablet 500 mg PO DAILY 14 Days Qty: 28 RF: 0 Discontinued garlic 2,000 mg 2,000 mg PO DAILY RF: 0 hydrochlorothiazide 50 mg tablet 50 mg PO DAILY RF: 0 Discharge Orders: Discharge Order (Routine); Ordered 12/17/20 Ordered By: Mau Powell Referrals: Corrie Pardo MD [Primary Care Provider] - 1-3 days Sharon Hou MD [Physician] - 2 weeks Discharge Diet: Cardiac and Diabetic Discharge Activity: Resume usual activity and Increase activity as tolerated Patient Instructions: Opioid Safety Activity Restrictions/Additional Instructions: Advised to take inhalation treatment with Advair and Spiriva daily. Advised to continue using Eliquis which is a blood thinner for next 2 weeks. Advised to continue working with incentive spirometry and flutter valve while at home. Advised to continue taking dexamethasone 6 mg for next 7 days. Advised to follow-up with his primary care provider and his ampoule filler and sealer within the next 4 to 7 days. Can take his COVID-19 vaccination in 3 months. Advised to continue following social distancing and isolation protocol for next 10 days. Advised to come back to the ER if fever of more than 101 Fahrenheit, more difficulty breathing than usual or requiring higher oxygen supplementation. Discharge Attestations Time Spent in Discharge Care*: greater than 30 min Specific Discharge Activities: educating patient, educating and/or supporting family/caregiver, discussing with pcp/other providers, discussing with bottle caser/social workers/dc planners, documenting/other paperwork and evaluating patient/reviewing data Status at Discharge: Cognitive status at discharge: cognitively intact , Behavioral status at discharge: cooperative and can be uncooperative , Functional status at discharge: independent ambulation Overall status at discharge: patient is back to baseline Quality Metrics Clinical Quality Measures During this hospital stay, did patient experience: None Coding Level of Care Code Acute Chg FW DC note Diagnoses Pneumonia due to 2019 novel coronavirus U07.1; J12.82 Diabetes E11.9 Hypertension I10 Acute respiratory failure with hypoxia J96.01 ARDS (adult respiratory distress syndrome) J80
--- NOTE | 2020-12-17 14:46 | PC.NURSE ---
Discharge Note Patient discharged to personal home via private vehicle accompanied by his fiance. Discharge instructions reviewed with patient and/or door to door sales representative. Mobile pharmacy medications and/or prescriptions sent to [facility] pharmacy. Belongings/home medications returned.
[2020-12-18 11:03] LABS: Erythrocyte Sedimentation Rate 14 mm/hr (0-10)
--- NOTE | 2020-12-18 13:06 | PC.NURSE ---
Prescriptions printed and faxed to [facility] per pt request.
--- NOTE | 2020-12-20 09:57 | PC.SOCIAL ---
multiple calls made to reach patient for discharge follow up call, unable to reach patient. message left.
== END 2020-12-17 14:30 | disposition home or self-care (01) | DRG 177 ==
LOC: ER 14:55 → MEDSURG 16:28 → ICU 12-11 18:34 → MEDSURG 12-15 14:29
PROVIDERS: Internal Medicine; Admitting Provider Internal Medicine; Emergency Provider Family Medicine; PCP Family Medicine; Visit Provider Student in an Organized Health Care Education/Training Program
DX: U07.1 COVID-19 (principal); J12.82 Pneumonia due to coronavirus disease 2019; J80 Acute respiratory distress syndrome; E11.9 Type 2 diabetes mellitus without complications; M10.9 Gout, unspecified; E78.5 Hyperlipidemia, unspecified; I10 Essential (primary) hypertension; K58.9 Irritable bowel syndrome, unspecified; G47.00 Insomnia, unspecified; Z87.891 Personal history of nicotine dependence; E87.6 Hypokalemia; Z79.84 Long term (current) use of oral hypoglycemic drugs
CPT/HCPCS: 36415; 36416; 71045; 71275; 80051; 80053; 80202; 81003; 82330; 82728; 82805; 82962; 83036; 83540; 83550; 83605; 83880; 84145; 84443; 84484; 85025; 85378; 85651; 86140; 86403; 87070; 87205; 87426; 87449; 87635; 87641; 93005; 93306; 94640; 94664; 96365; 96372; 96375; 99285; J1100; J1650; J1815; J1940; J2270; J2543; J3262; J3370; J7614; J7626; J7644; Q9967

== ENCOUNTER → 2021-05-08 08:14 | Outpatient (BNVA) | payer OTHER, SELFPAY | PROVIDERS: PCP Family Medicine; Visit Provider Urology | DX: N40.1 Benign prostatic hyperplasia with lower urinary tract symptoms (principal); R97.20 Elevated prostate specific antigen [PSA] | CPT/HCPCS: 81003; 84153 ==

== ENCOUNTER → 2021-06-21 08:47 | Outpatient (BNVA) | payer OTHER, SELFPAY | PROVIDERS: PCP Family Medicine; Visit Provider Internal Medicine Cardiovascular Disease | DX: R06.00 Dyspnea, unspecified (principal); I10 Essential (primary) hypertension; E78.2 Mixed hyperlipidemia; I77.810 Thoracic aortic ectasia | CPT/HCPCS: 99214 ==

== ENCOUNTER → 2021-08-06 08:03 | Outpatient (BNVA) | payer OTHER, SELFPAY | PROVIDERS: PCP Family Medicine; Visit Provider Internal Medicine Pulmonary Disease | DX: Z09 Encounter for follow-up examination after completed treatment for conditions other than malignant neoplasm (principal); R06.02 Shortness of breath; R06.00 Dyspnea, unspecified; R06.09 Other forms of dyspnea; U09.9 Post COVID-19 condition, unspecified; J43.2 Centrilobular emphysema; Z87.891 Personal history of nicotine dependence; E87.5 Hyperkalemia; I10 Essential (primary) hypertension; E11.8 Type 2 diabetes mellitus with unspecified complications | CPT/HCPCS: 99214 ==

== ENCOUNTER → 2021-11-13 07:58 | Outpatient (BNVA) | payer OTHER, SELFPAY | PROVIDERS: PCP Family Medicine; Visit Provider Urology | DX: R97.20 Elevated prostate specific antigen [PSA] (principal); N40.1 Benign prostatic hyperplasia with lower urinary tract symptoms | CPT/HCPCS: 36415; 81003; 84153; 99213 ==

== ENCOUNTER → 2021-12-20 10:13 | Outpatient (BNVA) | payer OTHER, SELFPAY | PROVIDERS: PCP Family Medicine; Visit Provider Internal Medicine Cardiovascular Disease | DX: R06.00 Dyspnea, unspecified (principal); I77.810 Thoracic aortic ectasia; I10 Essential (primary) hypertension; E78.2 Mixed hyperlipidemia; Z87.891 Personal history of nicotine dependence | CPT/HCPCS: 99214 ==

== ENCOUNTER → 2022-05-09 09:03 | Outpatient (BNVA) | payer OTHER, SELFPAY | PROVIDERS: PCP Family Medicine; Visit Provider Urology | DX: R97.20 Elevated prostate specific antigen [PSA] (principal) | CPT/HCPCS: 84153 ==

== ENCOUNTER → 2022-05-16 08:24 | Outpatient (BNVA) | payer OTHER, SELFPAY | PROVIDERS: PCP Family Medicine; Visit Provider Urology | DX: N40.1 Benign prostatic hyperplasia with lower urinary tract symptoms (principal); R97.20 Elevated prostate specific antigen [PSA] | CPT/HCPCS: 81003; 99213 ==

== ENCOUNTER 2022-09-30 14:16 | Outpatient (CLI) | payer OTHER, SELFPAY ==
--- NOTE | 2022-09-30 15:00 | CT_ITS ---
WS: [id number] CTA THORACIC AORTA WITH AND WITHOUT CONTRAST. HISTORY: Ascending aortic dilatation. TECHNIQUE: CT imaging of the thorax is performed with and without contrast. After noncontrast imaging is performed, CT angiogram is performed during injection of Omnipaque 350; 100 mL IV.. Sagittal and coronal reconstructions, sagittal and coronal MIP imaging is submitted. All CT scans at [facility] use at least one of these dose optimization techniques: automated exposure control; mA and/or k V adjustment per patient size (includes targeted exams where dose is matched to clinical indication); or iterative reconstruction. DLP: 749.46 mGy.cm COMPARISON: 12/06/2020 Mild continued dilatation of the ascending thoracic aorta to 4.6 cm. Similar to the prior examination . Normal tapering through the aortic arch. The descending aorta normal size at 2.9 cm. Origin of the great vessels is normal. Mild enlargement of the heart. No pericardial or pleural effusions. No pulmonary mass or nodule. No mediastinal or hilar adenopathy. Partially calcified 10 mm LEFT thyroid nodule. Cholelithiasis without acute cholecystitis. No adrenal mass. No destructive bone lesions. 10 mm renal cyst posterior LEFT upper pole. CT/CT angio chest [id number] IMPRESSION: 1. Stable mild dilatation of the ascending thoracic aorta to 4.6 cm. No progre ssion since 12/06/2020. 2. No pulmonary mass or nodule. 3. No adenopathy. 4. Mild cardiomegaly. 5. Cholelithiasis without acute cholecystitis.
[2022-09-30 15:07] LABS: Blood Urea Nitrogen 13 mg/dL (8-23); Glomerular Filtration Rate 95.6 mL/min (90-130)
[2022-09-30] MEDS: iohexol 350 mg/mL 500 mL Btl (per mL) IV (15:17)
== END 2022-09-30 14:17 | disposition home or self-care (01) ==
LOC: RAD 14:17
PROVIDERS: PCP Family Medicine; Visit Provider Internal Medicine Cardiovascular Disease
DX: I77.810 Thoracic aortic ectasia (principal); I51.7 Cardiomegaly; K80.20 Calculus of gallbladder without cholecystitis without obstruction
CPT/HCPCS: 71275; 82565; 84520; Q9967

== ENCOUNTER → 2023-01-21 13:33 | Outpatient (BNVA) | payer OTHER, SELFPAY | PROVIDERS: PCP Family Medicine; Visit Provider Internal Medicine Cardiovascular Disease | DX: R06.00 Dyspnea, unspecified (principal); I10 Essential (primary) hypertension; E78.2 Mixed hyperlipidemia; I77.810 Thoracic aortic ectasia; Z87.891 Personal history of nicotine dependence | CPT/HCPCS: 99214 ==

== ENCOUNTER → 2023-04-04 09:13 | Outpatient (BNVA) | payer OTHER, SELFPAY | PROVIDERS: PCP Family Medicine; Visit Provider Podiatrist Foot & Ankle Surgery | DX: B35.1 Tinea unguium (principal); G62.9 Polyneuropathy, unspecified; M20.41 Other hammer toe(s) (acquired), right foot; M20.42 Other hammer toe(s) (acquired), left foot; L84 Corns and callosities; E11.42 Type 2 diabetes mellitus with diabetic polyneuropathy | CPT/HCPCS: 11056; 11721; 99203 ==

== ENCOUNTER → 2023-06-16 07:24 | Outpatient (BNVA) | payer OTHER, SELFPAY | PROVIDERS: PCP Family Medicine; Visit Provider Podiatrist Foot & Ankle Surgery | DX: B35.1 Tinea unguium (principal); G62.9 Polyneuropathy, unspecified; M20.41 Other hammer toe(s) (acquired), right foot; M20.42 Other hammer toe(s) (acquired), left foot; L84 Corns and callosities; E11.42 Type 2 diabetes mellitus with diabetic polyneuropathy | CPT/HCPCS: 11055; 11721 ==

== ENCOUNTER → 2023-08-19 08:31 | Outpatient (BNVA) | payer OTHER, SELFPAY | PROVIDERS: PCP Family Medicine; Visit Provider Podiatrist Foot & Ankle Surgery | DX: B35.1 Tinea unguium (principal); G62.9 Polyneuropathy, unspecified; M20.41 Other hammer toe(s) (acquired), right foot; M20.42 Other hammer toe(s) (acquired), left foot; L84 Corns and callosities; E11.42 Type 2 diabetes mellitus with diabetic polyneuropathy | CPT/HCPCS: 11721 ==

== ENCOUNTER → 2023-12-04 07:40 | Outpatient (BNVA) | payer OTHER, SELFPAY | PROVIDERS: PCP Family Medicine; Visit Provider Podiatrist Foot & Ankle Surgery | DX: B35.1 Tinea unguium (principal); G62.9 Polyneuropathy, unspecified; M20.41 Other hammer toe(s) (acquired), right foot; M20.42 Other hammer toe(s) (acquired), left foot; L84 Corns and callosities; E11.42 Type 2 diabetes mellitus with diabetic polyneuropathy | CPT/HCPCS: 11721 ==

== ENCOUNTER → 2024-01-28 11:56 | Outpatient (BNVA) | payer OTHER, SELFPAY | PROVIDERS: PCP Family Medicine; Visit Provider Internal Medicine Cardiovascular Disease | DX: N18.9 Chronic kidney disease, unspecified (principal); R06.02 Shortness of breath; R60.9 Edema, unspecified | CPT/HCPCS: 36415; 80048; 83880; 84443; 85025; 99204 ==

== ENCOUNTER → 2024-02-05 07:57 | Outpatient (BNVA) | payer OTHER, SELFPAY | PROVIDERS: PCP Family Medicine; Visit Provider Podiatrist Foot & Ankle Surgery | DX: B35.1 Tinea unguium (principal); G62.9 Polyneuropathy, unspecified; M20.41 Other hammer toe(s) (acquired), right foot; M20.42 Other hammer toe(s) (acquired), left foot; L84 Corns and callosities; E11.42 Type 2 diabetes mellitus with diabetic polyneuropathy | CPT/HCPCS: 11055; 11721 ==

== ENCOUNTER 2024-03-03 12:52 | Outpatient (CLI) | payer OTHER, SELFPAY ==
--- NOTE | 2024-03-03 12:58 | CT_ITS ---
WS: [id number] CTA THORACIC AORTA WITH AND WITHOUT CONTRAST HISTORY: ascending aortic aneurysm TECHNIQUE: CTA imaging of the thorax is performed with and without contrast. After noncontrast imagin g is performed, CT angiogram is performed during injection of Omnipaque 350; 100 mL IV.. Sagittal and coronal reconstructions, sagittal and coronal MIP imaging is submitted. All CT scans at [facility] use at least one of these dose optimization techniques: automated exposure control; mA and/or kV adjustment per patient size (includes targeted exams where dose is matched to clinical indication) ; or iterative reconstruction. DLP: 782.78 mGy.cm COMPARISON: 09/30/2022, 12/06/2020 Moderate dilated ascending thoracic aorta. Maximum diameter of ascending aorta is 4.7 cm. No signific ant interval change since the most recent exam or 12/06/2020. Descending thoracic aorta is normal cheyanne alberto at 2.8 cm. Sinotubular junction and sinus of Valsalva are normal. No dissection. Normal origin of the great vessels. No ulcerated plaque. Normal size pulmonary arteries. No filling defects or pulmonary embolism. No mediastinal or hilar ramy nopathy. Moderate cardiomegaly is unchanged. No pericardial or pleural effusions. Chronic emphysema. No pulmonary mass, pneumonia or nodule. Small hiatal hernia. Hepatic steatosis. No adrenal mass. 6 mm exophytic cyst from the posterior super ior LEFT kidney. RIGHT subscapularis muscle lipoma. Mild thoracic spondylosis. CT/CT angio chest [id number] IMPRESSION: 1. Stable aneurysmal dilatation thoracic aorta, 4.7 cm. No significant progres sadie since 12/06/2020. 2. No aortic dissection. 3. Hepatic steatosis. 4. No mediastinal or hilar adenopathy. 5. Mild stable cardiomegaly.
[2024-03-03] MEDS: iohexol 350 mg/mL 500 mL Btl (per mL) IV (13:20)
== END 2024-03-03 12:53 | disposition home or self-care (01) ==
LOC: RAD 12:53
PROVIDERS: PCP Family Medicine; Visit Provider Internal Medicine Cardiovascular Disease
DX: I77.810 Thoracic aortic ectasia (principal); K76.0 Fatty (change of) liver, not elsewhere classified; N28.1 Cyst of kidney, acquired
CPT/HCPCS: 71275

== ENCOUNTER → 2024-04-22 07:58 | Outpatient (BNVA) | payer OTHER, SELFPAY | PROVIDERS: PCP Family Medicine; Visit Provider Podiatrist Foot & Ankle Surgery | DX: B35.1 Tinea unguium (principal); G62.9 Polyneuropathy, unspecified; M20.41 Other hammer toe(s) (acquired), right foot; M20.42 Other hammer toe(s) (acquired), left foot; L84 Corns and callosities; E11.42 Type 2 diabetes mellitus with diabetic polyneuropathy | CPT/HCPCS: 11055; 11721 ==

== ENCOUNTER → 2024-06-29 07:38 | Outpatient (BNVA) | payer OTHER, SELFPAY | PROVIDERS: PCP Family Medicine; Visit Provider Podiatrist Foot & Ankle Surgery | DX: E11.42 Type 2 diabetes mellitus with diabetic polyneuropathy (principal); B35.1 Tinea unguium; L84 Corns and callosities; G62.9 Polyneuropathy, unspecified; M20.41 Other hammer toe(s) (acquired), right foot; M20.42 Other hammer toe(s) (acquired), left foot; Q82.8 Other specified congenital malformations of skin | CPT/HCPCS: 11056; 11721; 99213 ==

== ENCOUNTER → 2024-07-27 08:35 | Outpatient (BNVA) | payer OTHER, SELFPAY | PROVIDERS: PCP Family Medicine; Visit Provider Nurse Practitioner Family | DX: I77.810 Thoracic aortic ectasia (principal); I10 Essential (primary) hypertension; E78.2 Mixed hyperlipidemia; Z87.891 Personal history of nicotine dependence | CPT/HCPCS: 99214 ==

== ENCOUNTER 2024-08-11 08:37 | Outpatient (CLI) | payer OTHER, SELFPAY ==
--- NOTE | 2024-08-11 08:43 | CT_ITS ---
WS: [id number] CTA CHEST ABDOMEN AND PELVIS TECHNIQUE: Noncontrast plus contrast enhanced CTA of the chest, abdomen, and pelvis with coronal and sagittal reformatted images and additional MIP Images. CLINICAL INFORMATION: I77.810 - Thoracic aortic ectasia COMPARISON: 2023 DLP: 1269.[address] scans at [facility] use at least one of these dose optimization techniques: automated exposure control; mA and/or kV adjustment per patient size (includes targeted exams where dose is matched to clinical indication); or iterative reconstruction. FINDINGS: Stable aneurysmal dilatation ascending thoracic aorta measuring 4.7 cm in maximum dimension. This is stable compared to previous. Normal caliber descending thoracic aorta. No evidence of dissection. Normal branching aortic arch anatomy. Proximal main pulmonary arteries are normal. Cardiomegaly. Chronic emphysematous changes. Celiac and SMA are patent. Proximal renal arteries are patent. NADER is patent. Normal caliber abdominal aorta. No aneurysm. Markedly enlarged prostate with evidence of bladder outlet obstruction. Recommend correlation PSA. Prostate measures 5.6 x 6.7 cm. Sigmoid diverticulosis. Small fat-containing umbilical hernia. Cholelithiasis. Normal pancreatic parenchymal enhancement. Adrenal glands are normal. No hydronephrosis in either kidney. Mild thoracic kyphosis. Hypertrophic changes thoracic spine with endplate Schmorl's nodes. Small esophageal hiatal hernia. Fatty liver. Stable small cyst superior pole LEFT kidney. Calcified LEFT thyroid nodule measuring 10 mm. Stable subscapularis lipoma. CT/CT [facility] [id number] IMPRESSION: 1. Stable aneurysmal ascending thoracic aorta measuring 4.7 cm in maximum dime nsion unchanged. 2. No evidence of abdominal aortic aneurysm. 3. Celiac and SMA are patent. 4. Markedly enlarged prostate. Recommend correlation PSA. 5. Cardiomegaly. 6. Cholelithiasis
[2024-08-11 09:47] LABS: Anion Gap 15.9 (5-19); Blood Urea Nitrogen 16 mg/dL (8-23); Calcium 9.1 mg/dL (8.5-10.5); Carbon Dioxide 25 mmol/L (22-29); Chloride 104 mmol/L (98-107); Glucose 100 mg/dL (65-115); Osmolality Calculated 293 mOsm/kg (285-295); Potassium 3.9 mmol/L (3.5-5.1); Sodium 141 mmol/L (136-145)
[2024-08-11] MEDS: iohexol 350 mg/mL 500 mL Btl (per mL) IV (10:11)
== END 2024-08-11 08:38 | disposition home or self-care (01) ==
LOC: RAD 08:39
PROVIDERS: PCP Family Medicine; Visit Provider Nurse Practitioner Family
DX: I71.21 Aneurysm of the ascending aorta, without rupture (principal); Z87.891 Personal history of nicotine dependence; N40.0 Benign prostatic hyperplasia without lower urinary tract symptoms; I51.7 Cardiomegaly; K80.20 Calculus of gallbladder without cholecystitis without obstruction; J43.8 Other emphysema; R93.89 Abnormal findings on diagnostic imaging of other specified body structures; K57.30 Diverticulosis of large intestine without perforation or abscess without bleeding; K42.9 Umbilical hernia without obstruction or gangrene; M40.294 Other kyphosis, thoracic region; M89.38 Hypertrophy of bone, other site; M51.44 Schmorl's nodes, thoracic region; K44.9 Diaphragmatic hernia without obstruction or gangrene; K76.0 Fatty (change of) liver, not elsewhere classified; N28.1 Cyst of kidney, acquired; E04.1 Nontoxic single thyroid nodule; D17.9 Benign lipomatous neoplasm, unspecified
CPT/HCPCS: 36415; 71275; 74174; 80048

== ENCOUNTER → 2024-08-31 07:41 | Outpatient (BNVA) | payer OTHER, SELFPAY | PROVIDERS: PCP Family Medicine; Visit Provider Podiatrist Foot & Ankle Surgery | DX: E11.42 Type 2 diabetes mellitus with diabetic polyneuropathy (principal); B35.1 Tinea unguium; L84 Corns and callosities; G62.9 Polyneuropathy, unspecified; M20.41 Other hammer toe(s) (acquired), right foot; M20.42 Other hammer toe(s) (acquired), left foot; Q82.8 Other specified congenital malformations of skin | CPT/HCPCS: 11056; 11721 ==

== ENCOUNTER 2024-09-23 06:03 | Outpatient (CLI) | payer OTHER, SELFPAY ==
--- NOTE | 2024-09-23 06:15 | USCV_ITS ---
Jorje Armendariz Age: 74 Gender: M : 1950 Exam Date: 09/23/2024 06:19 Ordering Phys: Margo Hogue NP Technologist: Exam Location: [facility] [place] Indication: ao arch anuer BP: 130 / 80 HR: 330 Rhythm: Sinus Technical Quality: Adequate MEASUREMENTS (Male / Female) Normal Values 2D ECHO LV Diastolic Diameter PLAX 4.8 cm 4.2 - 5.9 / 3.9 - 5.3 cm IVS Diastolic Thickness 1.6 cm 0.6 - 1.0 / 0.6 - 0.9 cm IVS Systolic Thickness 2.1 cm LVPW Diastolic Thickness 1.6 cm 0.6 - 1.0 / 0.6 - 0.9 cm LVPW Systolic Thickness 2.3 cm LVOT Diameter 2.0 cm LV Ejection Fraction 2D Teich 64.3 % LV Ejection Fraction MOD 4C 65.4 % LV Ejection Fraction MOD 2C 76.2 % LV Ejection Fraction 2C AL 78.0 % LA Diameter 4.5 cm RA Systolic Volume 4C AL 61.1 ml RA Systolic Volume 4C MOD 58.6 ml Aorta at Sinotubular Diameter 3.7 cm M-MODE LA Ao Ratio MM 1.3 AV Cusp Separation MM 2.8 cm DOPPLER AV Peak Velocity 102.0 cm/s LVOT Peak Velocity 42.0 cm/s AV Area Cont Eq vti 1.8 cm squared AV Area Cont Eq pk 1.3 cm squared MV Peak Velocity 103.0 cm/s MV Area PHT 4.1 cm squared Mitral E to A Ratio 0.7 TV Peak Velocity 264.5 cm/s TR Peak Velocity 266.0 cm/s TR Peak Gradient 28.3 mmHg TV Peak E Velocity 64.0 cm/s PV Peak Velocity 98.0 cm/s FINDINGS Left Ventricle Normal left ventricular size, systolic function and wall thickness, with no regional wall motion abnormalities. Left ventricular ejection fraction is estimated at 60 %. Grade I/IV diastolic dysfunction (abnormal relaxation filling pattern), normal to mildly elevated filling pressures. Right Ventricle The right ventricle is normal in size and function. Right Atrium The right atrium is normal in size. Left Atrium The left atrium is normal in size. Mitral Valve Mildly thickened mitral valve. No mitral valve stenosis. Mild mitral valve regurgitation. Aortic Valve Structurally normal aortic valve without significant sclerosis or stenosis. There is no aortic regurgitation. Tricuspid Valve Mild tricuspid valve regurgitation. Pulmonic Valve Structurally normal pulmonic valve without significant stenosis. There is no pulmonic regurgitation. Pericardium Normal pericardium without effusion. Aorta Normal ascending aorta dimension. IVC The inferior vena cava appears normal. CONCLUSIONS Normal left ventricular size, systolic function and wall thickness, with no regional wall motion abnormalities. Left ventricular ejection fraction is estimated at 60 %. Grade I/IV diastolic dysfunction (abnormal relaxation filling pattern), normal to mildly elevated filling pressures. Mildly thickened mitral valve. No mitral valve stenosis. Mild mitral valve regurgitation. There is no pericardial effusion. Right atrial pressure is around 5 mm of mercury. Dina Sanz MD (Electronically Signed) Final Date: 08 October 2024 13:48 S
== END 2024-09-23 06:04 | disposition home or self-care (01) ==
LOC: RAD 06:04
PROVIDERS: PCP Family Medicine; Visit Provider Nurse Practitioner Family
DX: R06.02 Shortness of breath (principal); R93.1 Abnormal findings on diagnostic imaging of heart and coronary circulation; I34.0 Nonrheumatic mitral (valve) insufficiency; I07.1 Rheumatic tricuspid insufficiency
CPT/HCPCS: 93306

== ENCOUNTER → 2024-11-25 07:27 | Outpatient (BNVA) | payer OTHER, SELFPAY | PROVIDERS: PCP Family Medicine; Visit Provider Podiatrist Foot & Ankle Surgery | DX: E11.42 Type 2 diabetes mellitus with diabetic polyneuropathy (principal); B35.1 Tinea unguium; G62.9 Polyneuropathy, unspecified; M20.41 Other hammer toe(s) (acquired), right foot; M20.42 Other hammer toe(s) (acquired), left foot; L84 Corns and callosities; Q82.8 Other specified congenital malformations of skin | CPT/HCPCS: 11721; 99213 ==

== ENCOUNTER → 2025-01-27 07:45 | Outpatient (BNVA) | payer OTHER, SELFPAY | PROVIDERS: PCP Family Medicine; Visit Provider Podiatrist Foot & Ankle Surgery | DX: E11.42 Type 2 diabetes mellitus with diabetic polyneuropathy (principal); B35.1 Tinea unguium; L84 Corns and callosities; E11.8 Type 2 diabetes mellitus with unspecified complications; G62.9 Polyneuropathy, unspecified; M20.41 Other hammer toe(s) (acquired), right foot; M20.42 Other hammer toe(s) (acquired), left foot; Q82.8 Other specified congenital malformations of skin | CPT/HCPCS: 11056; 11721 ==

== ENCOUNTER → 2025-02-08 15:19 | Outpatient (BNVA) | payer OTHER, SELFPAY | PROVIDERS: PCP Family Medicine; Visit Provider Internal Medicine Cardiovascular Disease | DX: I77.810 Thoracic aortic ectasia (principal); I10 Essential (primary) hypertension; E78.5 Hyperlipidemia, unspecified; R06.09 Other forms of dyspnea; M79.89 Other specified soft tissue disorders; Z87.891 Personal history of nicotine dependence | CPT/HCPCS: 99214 ==